=== PATIENT | female | born 1985 | race Caucasian/White ===

== ENCOUNTER 2018-07-01 20:32 | Emergency (ER) | payer OTHER ==
[~2018-07-01] VITALS: Ht 167.6 cm; Wt 81.1 kg
[~2018-07-01 20:32] MED LIST: BUPR1SUB SL; VLM5CL PO
[2018-07-01 20:38] VITALS: TEMP 36.7; Ht 167.6 cm; Wt 81.1 kg
[2018-07-01] MEDS ORDERED: BUPR8SUB19 SL (21:33)
[2018-07-01] MEDS ORDERED: BUSP5TAB59 PO (21:33)
[2018-07-01] MEDS ORDERED: FLUO20CA35 PO (21:33)
[2018-07-01] MEDS ORDERED: hydrOXYzine HCL 25 MG TAB PO STA (21:57)
[2018-07-01 22:07] VITALS: BP 118/66; PULSE 79; O2SAT 98
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
== END 2018-07-01 22:08 | disposition home or self-care (01) ==
LOC: C.EDB 20:33 → C.EDA 22:08
DX: Z02.89 Encounter for other administrative examinations (principal); F41.0 Panic disorder [episodic paroxysmal anxiety]; J45.909 Unspecified asthma, uncomplicated; F17.200 Nicotine dependence, unspecified, uncomplicated; Z62.810 Personal history of physical and sexual abuse in childhood; Z86.59 Personal history of other mental and behavioral disorders; Z79.899 Other long term (current) drug therapy; Z88.6 Allergy status to analgesic agent; Z88.8 Allergy status to other drugs, medicaments and biological substances

== ENCOUNTER 2021-08-28 22:34 | Inpatient (IN) ==
[2021-08-28] MEDS ORDERED: SODIUM CHLORIDE 0.9% 1000ML 1,000 ML IV SCH (23:00)
[2021-08-28 23:06] LABS: Basophils # (auto) 0.02 K/uL (0-0.2); Basophils % (auto) 0.2 %; Eosinophils # (auto) 0.21 K/uL (0-0.5); Eosinophils % (auto) 2.4 %; Hematocrit (blood only) 39.7 % (37-47); Hemoglobin 13.7 g/dL (12.0-16.0); Immature Granulocytes # (auto) 0.02 K/uL (0.00-0.02); Immature Granulocytes % (auto) 0.2 %; Lymphocytes # (auto) 1.93 K/uL (1.2-3.4); Lymphocytes % (auto) 22.1 %; Mean Corpuscular Hemoglobin 31.3 pg (25-34); Mean Corpuscular Hgb Conc 34.5 g/dL (32-36); Mean Corpuscular Volume 90.6 fL (80-100); Mean Platelet Volume 8.7 fL (7.4-10.4); Monocytes # (auto) 0.44 K/uL (0.11-0.59); Neutrophils # (auto) 6.13 K/uL (1.4-6.5); Neutrophils % (auto) 70.1 %; Platelet Count 253 K/uL (130-400); RDW Coefficient of Variation 12.9 % (11.5-14.5); RDW Standard Deviation 42.8 fL (36.4-46.3); Red Blood Count 4.38 M/uL (4.2-5.4); White Blood Count 8.75 K/uL (4.8-10.8)
--- NOTE | 2021-08-28 23:18 | Emergency Department Note ---
Impression & Plan Seizure-like activity, Accidental drug overdose, Headache ED Provider Note NAME: DOM LE AGE: 36 SEX: F : 1985 ARRIVES VIA: Ambulance INFORMANT: Patient, ED PROVIDER(S): Roc Gates MD Patient did present due to concern for witnessed seizure which occurred 2 separate times for several minutes. This was witnessed by the patient's sister. Patient denies any fevers chills chest pains or shortness of breath. Patient does have mild headache but denies any nausea vomiting. Patient does have a known history of drug abuse and is on Suboxone but the patient states that she has not taken anything in appropriate recently. Patient denies any infectious symptoms. Patient is not vaccinated for Covid. Patient denies any supplements stimulants or drugs or alcohol. The patient does smoke cigarettes. The patient has had a prior history of seizure in the distant past. Patient states her LMP was several weeks ago. Patient had no reported trauma. BSG was normal. Patient was awake and alert upon the time of presentation. The patient did receive 2 Ativan by EMS prior to arrival. Patient denies any tongue biting or incontinence. Chief Complaint: Seizure HPI: ROS: See HPI for pertinent positives and negatives. A total of 10 systems were reviewed and otherwise negative. Past medical history: See below Surgical history: See below Social history: See below Physical Exam: GENERAL: NAD, wearing a mask, non-toxic. EYE EXAM: Normal conjunctiva. PERRL, no anisocoria and EOM's grossly intact w/o pain. OROPHARYNX: Moist mucus membranes. Grossly normal dentition. NECK: Supple, no nuchal rigidity, no adenopathy, non-tender. No signs of meningismus. LUNGS: Clear to auscultation. Normal chest wall mechanics. HEART: NSR, no MRG. ABDOMEN: Abdomen soft, non-tender, normo-active bowel sounds, no masses, no rebound or guarding. BACK: No CVA TTP. SKIN: No rashes and no bruising. UPPER EXTREMITIES: Upper extremities are grossly normal. LOWER EXTREMITIES: Grossly normal, no edema. Negative Homans' sign bilaterally. NEURO EXAM: A&O x3, cranial nerves II-XII grossly intact, normal speech, moves all 4 extremities on command w/o issue. Good finger to nose, no drift, no sensory deficits. Differential diagnoses: Epilepsy, infection, hypoglycemia, electrolyte abnormalities, cardiac sources, intracerebral event, trauma, toxicologic, neurologic, syncope, as well as other pathologies. Course: Patient was seen and evaluated the bedside. Full history physical exam was performed. EKG interpreted by me Sinus tachycardia, rate 115, normal intervals, normal axis, mild depressions anteriorly and laterally.Depressions are slightly more prominent from comparison EKG completed December 21, 2020. Imaging Studies: See Below Cardiac monitoring: An order was placed for continuous cardiac monitoring. The monitor shows a rate of 104 with tachycardic and regular rhythm. MDM: Patient was seen due to concern for seizure. Blood work was obtained. After blood work was obtained which was unremarkable the patient had admitted to taking too much gabapentin yesterday. The patient was trialed by mouth and given headache medications. The patient had a subsequent seizure was given 2 of Ativan. The patient was loaded with Keppra. Given that the patient has had 3 seizures I do believe the patient would benefit from inpatient treatment. BSG was normal. I did speak with the on-call hospitalist Dr. De Los Santos and the patient was admitted to the medicine service. Critical Care: I have personally spent 37 minutes of critical care time in direct management of this patient. This includes bedside care, interpretation of diagnostic studies, and testing, discussion with consultants, patient, and family members, and other require inpatient management activities. This 37 minutes is in excess of all separately billable procedures. Past Med/Surg History Medical History (Updated 08/29/21 @ 16:09 by Roc Gates MD) Anxiety Panic attack (09/12/13) Surgical History No pertinent past surgical history Family History Other No pertinent family history Social History Smoking Status: Former smoker Tobacco Type: Cigarettes Hx Alcohol Use: No Preferred Language: Greenlandic marital status: single Current Living Situation: Alone Other Information That Helps Us Care for You: No Feels Safe at Home: Yes Safety Concerns: Feels Safe At This Time Assistive Devices: None Allergies Allergies Allergy/AdvReac Type Severity Reaction Status Date / Time tramadol Allergy Intermediate rash/itchin Verified 08/28/21 23:07 g promethazine AdvReac Intermediate Muscle Verified 08/28/21 23:07 twitching and change in mental status. Home Meds Home Medications Medication Instructions Recorded Confirmed buprenorphine 8 mg-naloxone 2 mg 1 tab SUBLINGUAL DAILY 07/07/21 08/28/21 sublingual tablet lamotrigine 25 mg tablet 75 mg PO QAM 07/07/21 08/28/21 quetiapine 100 mg tablet 150 mg PO HS 07/07/21 08/28/21 sertraline 100 mg tablet 100 mg PO DAILY 07/07/21 08/28/21 Results & Data (ED) Vital Signs Vital Signs - 24 hr 08/28/21 22:36 08/28/21 22:39 08/28/21 22:47 Temperature 37.1 C Temperature Source Oral Pulse Rate 118 H 115 H 120 H Pulse Rate from SpO2 Sensor 114 H Respiratory Rate 17 18 17 Respiratory Effort / Characteristics Non-Labored Respiratory Depth Normal Respiratory Pattern Regular Blood Pressure 105/47 L 105/47 L Blood Pressure Mean 66 66 Blood Pressure Position Lying Pulse Oximetry 96 94 97 Oxygen Delivery Method Room Air Room Air Oxygen Flow Rate Sepsis Recent Fever Within 48 Hours No Sepsis New/Unexplained Change in Mental Status No Sepsis Action Taken by Nursing No Action Required Oxygen Flow Rate - Titration Pulse Oximetry Post Tiitration 08/28/21 23:00 08/28/21 23:02 08/28/21 23:31 Temperature Temperature Source Pulse Rate 122 H Pulse Rate from SpO2 Sensor 122 H 106 H Respiratory Rate 18 21 Respiratory Effort / Characteristics Respiratory Depth Respiratory Pattern Blood Pressure 115/68 117/65 Blood Pressure Mean 83 82 Blood Pressure Position Pulse Oximetry 100 99 Oxygen Delivery Method Room Air Oxygen Flow Rate 99 Sepsis Recent Fever Within 48 Hours Sepsis New/Unexplained Change in Mental Status Sepsis Action Taken by Nursing Oxygen Flow Rate - Titration Pulse Oximetry Post Tiitration 08/29/21 00:00 08/29/21 00:30 08/29/21 01:00 Temperature Temperature Source Pulse Rate 104 H 98 H 110 H Pulse Rate from SpO2 Sensor 105 H 98 H 104 H Respiratory Rate 13 18 22 Respiratory Effort / Characteristics Respiratory Depth Respiratory Pattern Blood Pressure 98/61 L 105/53 L 104/57 L Blood Pressure Mean 73 70 72 Blood Pressure Position Pulse Oximetry 98 95 97 Oxygen Delivery Method Oxygen Flow Rate Sepsis Recent Fever Within 48 Hours Sepsis New/Unexplained Change in Mental Status Sepsis Action Taken by Nursing Oxygen Flow Rate - Titration Pulse Oximetry Post Tiitration 08/29/21 01:30 08/29/21 01:40 08/29/21 02:00 Temperature Temperature Source Pulse Rate 102 H 98 H Pulse Rate from SpO2 Sensor 102 H 98 H Respiratory Rate 19 19 Respiratory Effort / Characteristics Respiratory Depth Respiratory Pattern Blood Pressure 104/60 90/45 L Blood Pressure Mean 74 60 Blood Pressure Position Pulse Oximetry 96 88 L 92 Oxygen Delivery Method Room Air Non-rebreather Room Air Oxygen Flow Rate Sepsis Recent Fever Within 48 Hours Sepsis New/Unexplained Change in Mental Status Sepsis Action Taken by Nursing Oxygen Flow Rate - Titration 10 Pulse Oximetry Post Tiitration 92 08/29/21 02:30 08/29/21 02:33 Temperature Temperature Source Pulse Rate 94 H Pulse Rate from SpO2 Sensor 94 H Respiratory Rate 17 Respiratory Effort / Characteristics Respiratory Depth Respiratory Pattern Blood Pressure 88/40 L Blood Pressure Mean 56 Blood Pressure Position Pulse Oximetry 93 93 Oxygen Delivery Method Nasal Cannula Nasal Cannula Oxygen Flow Rate 2 2 Sepsis Recent Fever Within 48 Hours Sepsis New/Unexplained Change in Mental Status Sepsis Action Taken by Nursing Oxygen Flow Rate - Titration Pulse Oximetry Post Tiitration Home Medications Current Medication List: was personally reviewed by me Laboratory Data Attestation: I reviewed the patient's lab results. Result diagrams: 08/28/21 22:55 08/28/21 22:55 Lab Results 08/28/21 08/28/21 08/28/21 Range/Units 22:55 22:55 22:55 WBC 8.75 (4.8-10.8) K/uL RBC 4.38 (4.2-5.4) M/uL Hgb 13.7 (12.0-16.0) g/dL Hct 39.7 (37-47) % MCV 90.6 (80-100) fL MCH 31.3 (25-34) pg MCHC 34.5 (32-36) g/dL RDW Std Deviation 42.8 (36.4-46.3) fL RDW Coeff of Joe 12.9 (11.5-14.5) % Plt Count 253 (130-400) K/uL MPV 8.7 (7.4-10.4) fL Immature Gran % (Auto) 0.2 % Neut % (Auto) 70.1 % Lymph % (Auto) 22.1 % Louisa % (Auto) 5.0 % Eos % (Auto) 2.4 % Baso % (Auto) 0.2 % Neut # (Auto) 6.13 (1.4-6.5) K/uL Lymph # (Auto) 1.93 (1.2-3.4) K/uL Louisa # (Auto) 0.44 (0.11-0.59) K/uL Eos # (Auto) 0.21 (0-0.5) K/uL Baso # (Auto) 0.02 (0-0.2) K/uL Immature Gran # (Auto) 0.02 (0.00-0.02) K/uL Sodium 135 L (136-145) mmol/L Potassium 3.9 (3.5-5.1) mmol/L Chloride 111 H (98-107) mmol/L Carbon Dioxide 23 (21-32) mmol/L Anion Gap 1.0 L (3-11) BUN 13 (7-18) mg/dl Creatinine 0.99 (0.6-1.2) mg/dl Est Cr Clr Drug Dosing 80.4 ml/min Est GFR ( Amer) 86.2 ml/min Est GFR (Non-Af Amer) 74.3 ml/min BUN/Creatinine Ratio 12.8 (10-20) Glucose 122 H (70-99) mg/dl POC Glucose (70-99) mg/dl Estimat Average Glucose mg/dl Hemoglobin A1c (4.5-5.6) % Calcium 8.7 (8.5-10.1) mg/dl Phosphorus 2.0 L (2.5-4.9) mg/dl Magnesium 2.1 (1.8-2.4) mg/dl Total Bilirubin 0.2 (0.2-1) mg/dl AST 16 (15-37) U/L ALT 19 (12-78) U/L Alkaline Phosphatase 57 (45-117) U/L Troponin I < 0.015 (0-0.045) ng/ml Total Protein 7.4 (6.4-8.2) gm/dl Albumin 3.9 (3.4-5.0) gm/dl Globulin 3.5 (2.5-4.0) gm/dl Albumin/Globulin Ratio 1.1 (0.9-2) HCG, Qual (Negative) Urine Color Urine Appearance (Clear) Urine pH (4.5-7.5) Ur Specific [place] (1.000-1.030) Urine Protein (Negative) Urine Glucose (UA) (Negative) Urine Ketones (Negative) Urine Blood (Negative) Urine Nitrite (Negative) Urine Bilirubin (Negative) Urine Urobilinogen (Negative) Ur Leukocyte Esterase (Negative) Urine WBC (Auto) (0-5) /hpf Urine RBC (Auto) (0-4) /hpf U Hyaline Cast (Auto) (0-5) /lpf U Epithel Cells (Auto) (0-5) /lpf Urine Bacteria (Auto) (Negative) Urine Opiates Screen (Neg) Ur Methadone, Qual (Neg) Urine Barbiturates (Neg) Ur Phencyclidine (PCP) (Neg) U Amphetamin/Meth Scrn (Neg) MDMA (Ecstasy) Screen (Neg) U Benzodiazepines Scrn (Neg) Ur Cocaine Metabolite (Neg) U Marijuana (THC) Screen (Neg) Ethyl Alcohol mg/dL < 3.0 (0-3) mg/dl Lyme Disease IgG Ab (Negative) Lyme Disease IgM Ab (Negative) COVID-19 Eval Order SARS-CoV-2 (PCR) (Negative) 08/28/21 08/28/21 08/28/21 Range/Units 22:55 22:55 22:55 WBC (4.8-10.8) K/uL RBC (4.2-5.4) M/uL Hgb (12.0-16.0) g/dL Hct (37-47) % MCV (80-100) fL MCH (25-34) pg MCHC (32-36) g/dL RDW Std Deviation (36.4-46.3) fL RDW Coeff of Joe (11.5-14.5) % Plt Count (130-400) K/uL MPV (7.4-10.4) fL Immature Gran % (Auto) % Neut % (Auto) % Lymph % (Auto) % Louisa % (Auto) % Eos % (Auto) % Baso % (Auto) % Neut # (Auto) (1.4-6.5) K/uL Lymph # (Auto) (1.2-3.4) K/uL Louisa # (Auto) (0.11-0.59) K/uL Eos # (Auto) (0-0.5) K/uL Baso # (Auto) (0-0.2) K/uL Immature Gran # (Auto) (0.00-0.02) K/uL Sodium (136-145) mmol/L Potassium (3.5-5.1) mmol/L Chloride (98-107) mmol/L Carbon Dioxide (21-32) mmol/L Anion Gap (3-11) BUN (7-18) mg/dl Creatinine (0.6-1.2) mg/dl Est Cr Clr Drug Dosing ml/min Est GFR ( Amer) ml/min Est GFR (Non-Af Amer) ml/min BUN/Creatinine Ratio (10-20) Glucose (70-99) mg/dl POC Glucose (70-99) mg/dl Estimat Average Glucose 105 mg/dl Hemoglobin A1c 5.3 (4.5-5.6) % Calcium (8.5-10.1) mg/dl Phosphorus (2.5-4.9) mg/dl Magnesium (1.8-2.4) mg/dl Total Bilirubin (0.2-1) mg/dl AST (15-37) U/L ALT (12-78) U/L Alkaline Phosphatase (45-117) U/L Troponin I (0-0.045) ng/ml Total Protein (6.4-8.2) gm/dl Albumin (3.4-5.0) gm/dl Globulin (2.5-4.0) gm/dl Albumin/Globulin Ratio (0.9-2) HCG, Qual Negative (Negative) Urine Color Urine Appearance (Clear) Urine pH (4.5-7.5) Ur Specific [place] (1.000-1.030) Urine Protein (Negative) Urine Glucose (UA) (Negative) Urine Ketones (Negative) Urine Blood (Negative) Urine Nitrite (Negative) Urine Bilirubin (Negative) Urine Urobilinogen (Negative) Ur Leukocyte Esterase (Negative) Urine WBC (Auto) (0-5) /hpf Urine RBC (Auto) (0-4) /hpf U Hyaline Cast (Auto) (0-5) /lpf U Epithel Cells (Auto) (0-5) /lpf Urine Bacteria (Auto) (Negative) Urine Opiates Screen (Neg) Ur Methadone, Qual (Neg) Urine Barbiturates (Neg) Ur Phencyclidine (PCP) (Neg) U Amphetamin/Meth Scrn (Neg) MDMA (Ecstasy) Screen (Neg) U Benzodiazepines Scrn (Neg) Ur Cocaine Metabolite (Neg) U Marijuana (THC) Screen (Neg) Ethyl Alcohol mg/dL (0-3) mg/dl Lyme Disease IgG Ab Negative (Negative) Lyme Disease IgM Ab Negative (Negative) COVID-19 Eval Order SARS-CoV-2 (PCR) (Negative) 08/28/21 08/28/21 08/29/21 Range/Units 23:32 23:32 01:54 WBC (4.8-10.8) K/uL RBC (4.2-5.4) M/uL Hgb (12.0-16.0) g/dL Hct (37-47) % MCV (80-100) fL MCH (25-34) pg MCHC (32-36) g/dL RDW Std Deviation (36.4-46.3) fL RDW Coeff of Joe (11.5-14.5) % Plt Count (130-400) K/uL MPV (7.4-10.4) fL Immature Gran % (Auto) % Neut % (Auto) % Lymph % (Auto) % Louisa % (Auto) % Eos % (Auto) % Baso % (Auto) % Neut # (Auto) (1.4-6.5) K/uL Lymph # (Auto) (1.2-3.4) K/uL Louisa # (Auto) (0.11-0.59) K/uL Eos # (Auto) (0-0.5) K/uL Baso # (Auto) (0-0.2) K/uL Immature Gran # (Auto) (0.00-0.02) K/uL Sodium (136-145) mmol/L Potassium (3.5-5.1) mmol/L Chloride (98-107) mmol/L Carbon Dioxide (21-32) mmol/L Anion Gap (3-11) BUN (7-18) mg/dl Creatinine (0.6-1.2) mg/dl Est Cr Clr Drug Dosing ml/min Est GFR ( Amer) ml/min Est GFR (Non-Af Amer) ml/min BUN/Creatinine Ratio (10-20) Glucose (70-99) mg/dl POC Glucose (70-99) mg/dl Estimat Average Glucose mg/dl Hemoglobin A1c (4.5-5.6) % Calcium (8.5-10.1) mg/dl Phosphorus (2.5-4.9) mg/dl Magnesium (1.8-2.4) mg/dl Total Bilirubin (0.2-1) mg/dl AST (15-37) U/L ALT (12-78) U/L Alkaline Phosphatase (45-117) U/L Troponin I (0-0.045) ng/ml Total Protein (6.4-8.2) gm/dl Albumin (3.4-5.0) gm/dl Globulin (2.5-4.0) gm/dl Albumin/Globulin Ratio (0.9-2) HCG, Qual (Negative) Urine Color Yellow Urine Appearance Clear (Clear) Urine pH 5.0 (4.5-7.5) Ur Specific [place] 1.024 (1.000-1.030) Urine Protein Negative (Negative) Urine Glucose (UA) Negative (Negative) Urine Ketones Trace H (Negative) Urine Blood Trace H (Negative) Urine Nitrite Negative (Negative) Urine Bilirubin Negative (Negative) Urine Urobilinogen Negative (Negative) Ur Leukocyte Esterase Negative (Negative) Urine WBC (Auto) 1-5 (0-5) /hpf Urine RBC (Auto) 0-4 (0-4) /hpf U Hyaline Cast (Auto) 1-5 (0-5) /lpf U Epithel Cells (Auto) >30 H (0-5) /lpf Urine Bacteria (Auto) 1+ H (Negative) Urine Opiates Screen Neg (Neg) Ur Methadone, Qual Neg (Neg) Urine Barbiturates Neg (Neg) Ur Phencyclidine (PCP) Neg (Neg) U Amphetamin/Meth Scrn Neg (Neg) MDMA (Ecstasy) Screen Neg (Neg) U Benzodiazepines Scrn Neg (Neg) Ur Cocaine Metabolite Neg (Neg) U Marijuana (THC) Screen Neg (Neg) Ethyl Alcohol mg/dL (0-3) mg/dl Lyme Disease IgG Ab (Negative) Lyme Disease IgM Ab (Negative) COVID-19 Eval Order Covid19 at [facility] SARS-CoV-2 (PCR) (Negative) 08/29/21 08/29/21 Range/Units 01:54 01:58 WBC (4.8-10.8) K/uL RBC (4.2-5.4) M/uL Hgb (12.0-16.0) g/dL Hct (37-47) % MCV (80-100) fL MCH (25-34) pg MCHC (32-36) g/dL RDW Std Deviation (36.4-46.3) fL RDW Coeff of Jeo (11.5-14.5) % Plt Count (130-400) K/uL MPV (7.4-10.4) fL Immature Gran % (Auto) % Neut % (Auto) % Lymph % (Auto) % Louisa % (Auto) % Eos % (Auto) % Baso % (Auto) % Neut # (Auto) (1.4-6.5) K/uL Lymph # (Auto) (1.2-3.4) K/uL Louisa # (Auto) (0.11-0.59) K/uL Eos # (Auto) (0-0.5) K/uL Baso # (Auto) (0-0.2) K/uL Immature Gran # (Auto) (0.00-0.02) K/uL Sodium (136-145) mmol/L Potassium (3.5-5.1) mmol/L Chloride (98-107) mmol/L Carbon Dioxide (21-32) mmol/L Anion Gap (3-11) BUN (7-18) mg/dl Creatinine (0.6-1.2) mg/dl Est Cr Clr Drug Dosing ml/min Est GFR ( Amer) ml/min Est GFR (Non-Af Amer) ml/min BUN/Creatinine Ratio (10-20) Glucose (70-99) mg/dl POC Glucose 116 H (70-99) mg/dl Estimat Average Glucose mg/dl Hemoglobin A1c (4.5-5.6) % Calcium (8.5-10.1) mg/dl Phosphorus (2.5-4.9) mg/dl Magnesium (1.8-2.4) mg/dl Total Bilirubin (0.2-1) mg/dl AST (15-37) U/L ALT (12-78) U/L Alkaline Phosphatase (45-117) U/L Troponin I (0-0.045) ng/ml Total Protein (6.4-8.2) gm/dl Albumin (3.4-5.0) gm/dl Globulin (2.5-4.0) gm/dl Albumin/Globulin Ratio (0.9-2) HCG, Qual (Negative) Urine Color Urine Appearance (Clear) Urine pH (4.5-7.5) Ur Specific [place] (1.000-1.030) Urine Protein (Negative) Urine Glucose (UA) (Negative) Urine Ketones (Negative) Urine Blood (Negative) Urine Nitrite (Negative) Urine Bilirubin (Negative) Urine Urobilinogen (Negative) Ur Leukocyte Esterase (Negative) Urine WBC (Auto) (0-5) /hpf Urine RBC (Auto) (0-4) /hpf U Hyaline Cast (Auto) (0-5) /lpf U Epithel Cells (Auto) (0-5) /lpf Urine Bacteria (Auto) (Negative) Urine Opiates Screen (Neg) Ur Methadone, Qual (Neg) Urine Barbiturates (Neg) Ur Phencyclidine (PCP) (Neg) U Amphetamin/Meth Scrn (Neg) MDMA (Ecstasy) Screen (Neg) U Benzodiazepines Scrn (Neg) Ur Cocaine Metabolite (Neg) U Marijuana (THC) Screen (Neg) Ethyl Alcohol mg/dL (0-3) mg/dl Lyme Disease IgG Ab (Negative) Lyme Disease IgM Ab (Negative) COVID-19 Eval Order SARS-CoV-2 (PCR) NEGATIVE (Negative) Administered Medications Discontinued Medications Acetaminophen (Acetaminophen 500 Mg Tab) 1,000 mg PO NOW STA Stop: 08/29/21 01:32 Last Admin: 08/29/21 03:57 Dose: Not Given Documented by: [id number] Gadobutrol (Gadobutrol 65ml Vial) 8.5 ml IV ONCE ONE Stop: 08/29/21 13:17 Last Admin: 08/29/21 13:17 Dose: 8.5 ml Documented by: [id number] Sodium Chloride (Nss 1000ml) 1,000 mls @ 999 mls/hr IV .Q1H1M DIPAK Stop: 08/29/21 00:00 Last Infusion: 08/29/21 00:05 Dose: 0 mls/hr Documented by: [id number] Admin: 08/28/21 22:57 Dose: 999 mls/hr Documented by: [id number] Sodium Chloride (Nss 1000ml) 1,000 mls @ 999 mls/hr IV .Q1H1M ONE Stop: 08/29/21 02:16 Last Infusion: 08/29/21 03:36 Dose: 0 mls/hr Documented by: [id number] Admin: 08/29/21 01:47 Dose: 999 mls/hr Documented by: [id number] Lorazepam (Ativan) 2 mg in 4 mls @ 4 mls/min IV NOW STA Stop: 08/29/21 01:42 Last Admin: 08/29/21 01:50 Dose: 4 mls/min Documented by: [id number] Levetiracetam 2,000 mg/ Sodium (Chloride) 270 mls @ 999 mls/hr IV NOW STA Stop: 08/29/21 01:57 Last Infusion: 08/29/21 02:21 Dose: 0 mls/hr Documented by: [id number] Admin: 08/29/21 02:02 Dose: 999 mls/hr Documented by: [id number] Levetiracetam 2,000 mg/ Sodium (Chloride) 270 mls @ 999 mls/hr IV NOW STA Stop: 08/29/21 02:07 Last Admin: 08/29/21 02:16 Dose: Not Given Documented by: [id number] Lactated Ringer's (Lr) 1,000 mls @ 100 mls/hr IV .Q10H ONE Stop: 08/29/21 12:47 Last Infusion: 08/29/21 11:28 Dose: 0 mls/hr Documented by: [id number] Admin: 08/29/21 03:32 Dose: 100 mls/hr Documented by: [id number] Sodium Chloride (Nss 1000ml) 1,000 mls @ 999 mls/hr IV .Q1H1M ONE Stop: 08/29/21 04:53 Last Infusion: 08/29/21 05:02 Dose: 0 mls/hr Documented by: [id number] Admin: 08/29/21 04:01 Dose: 999 mls/hr Documented by: [id number] Ketorolac Tromethamine (Ketorolac Tromethamine 15 Mg/Ml Vial) 10 mg IV NOW ONE Stop: 08/29/21 01:32 Last Admin: 08/29/21 01:35 Dose: 10 mg Documented by: [id number] Lorazepam (Lorazepam 2 Mg/4 Ml Vial) Confirm Administered Dose 2 mg .ROUTE .STK- MED ONE Stop: 08/29/21 01:43 Last Admin: 08/29/21 01:50 Dose: Not Given Documented by: [id number] Ondansetron HCl (Ondansetron Inj 2 Mg/Ml 2 Ml Vial) 4 mg IV NOW STA Stop: 08/29/21 00:00 Last Admin: 08/29/21 00:02 Dose: 4 mg Documented by: [id number] Ondansetron HCl (Ondansetron Inj 2 Mg/Ml 2 Ml Vial) Confirm Administered Dose 4 mg .ROUTE .STK-MED ONE Stop: 08/29/21 00:01 Last Admin: 08/29/21 00:05 Dose: Not Given Documented by: [id number] Potassium Phosphate (Pot Phosphate Monobasic W/ Sod Tab) 2 tab PO NOW STA Stop: 08/28/21 23:45 Last Admin: 08/29/21 06:02 Dose: 2 tab Documented by: [id number] Imaging Data Radiologist's Impression: Head CT 08/28/21 22:47 CT head/brain wo con Clinical Indication: Seizure. Technique: Contiguous axial CT images of the head were acquired from the base of the skull to the vertex without intravenous contrast administration. Images were viewed in brain, subdural and bone windows. Automated dose lowering techniques and/or adjustment according to patient size were utilized for this exam. Comparison: None available at the time of this dictation. Findings: The ventricles, basal cisterns, and cerebral sulci are normal. There is no acute intracranial hemorrhage or evidence of acute territorial infarction. Neither mass effect, shift of the midline structures, nor abnormal extra-axial fluid co llections are shown. Imaged portions of the paranasal sinuses and mastoid air cells are clear. The orbits appear normal. There are no acute fractures of the calvaria or scalp swelling. Impression: No acute intracranial hemorrhage, evidence of acute territorial infarction, or other acute intracranial disease process. ACT 112: Negative or not required by law. Electronically signed by: Mehrdad Guerra M.D. 08/29/2021 7:51 AM Chest X-Ray 08/29/21 02:42 XR chest 1V portable CLINICAL HISTORY: low o2 COMPARISON STUDY: December 24, 2020 FINDINGS: No pneumothorax. No pleural effusion. Interval prominence of bilateral reticular nodular opacities, most prominent within left lung. Lung volumes are decreased with crowded lung markings. Cardiomediastinal silhouette is within normal limits in size. No significant pulmonary vascular congestion.. Osseous structures: Redemonstration of healed fracture deformity of the right rib cage. IMPRESSION: 1. Diffuse reticular nodular opacities are new since prior study, might represent infectious/inflammatory process versus other etiology. Suboptimal study due to low inspiratory effort. Follow-up evaluation with PA and lateral chest radiograph is suggested. ACT 112: Negative or not required by law. The above report was generated using voice recognition software. It may contain grammatical, syntax or spelling errors. Electronically signed by: Alicia Hart DO 08/29/2021 8:25 AM Discharge Plan Visit Data Chief Complaint: Seizure ED Provider: Roc Gates Discharge Problem: Seizure-like activity, Accidental drug overdose, Headache Patient Disposition: Admitted As Inpatient Condition: Good Discharge Instructions Interventions: ED Discharge Assessment Last Done: 08/29/21 04:26
[2021-08-28 23:28] LABS: Pregnancy Test, Serum Negative (Negative)
[2021-08-28 23:40] LABS: Alanine Aminotransferase 19 U/L (12-78); Albumin Level 3.9 gm/dl (3.4-5.0); Aspartate Aminotransferase 16 U/L (15-37); BUN Creatinine Ratio 12.8 (10-20); Blood Urea Nitrogen 13 mg/dl (7-18); Calcium 8.7 mg/dl (8.5-10.1); Carbon Dioxide 23 mmol/L (21-32); Chloride 111 mmol/L (98-107); Creatinine Clr Calc Pharmacy 80.4 ml/min; Est GFR (African American) 86.2 ml/min; Est GFR (Non-African American) 74.3 ml/min; Glucose 122 mg/dl (70-99); Magnesium 2.1 mg/dl (1.8-2.4); Potassium 3.9 mmol/L (3.5-5.1); Sodium 135 mmol/L (136-145)
[2021-08-28 23:43] LABS: Albumin Globulin Ratio 1.1 (0.9-2); Alkaline Phosphatase 57 U/L (45-117); Bilirubin,Total 0.2 mg/dl (0.2-1); Globulin 3.5 gm/dl (2.5-4.0); Total Protein 7.4 gm/dl (6.4-8.2)
[2021-08-28 23:51] LABS: Appearance Urine Clear (Clear); Bacteria Urine Automated 1+ (Negative); Bilirubin Urine Negative (Negative); Blood Urine Trace (Negative); Color Urine Yellow; Epithelial Cell Urine Auto >30 /lpf (0-5); Glucose Urine UA Negative (Negative); Ketones Urine Trace (Negative); Leukocyte Esterase Urine Negative (Negative); Nitrite Urine Negative (Negative); Protein Urine Negative (Negative); RBC Urine Automated 0-4 /hpf (0-4); Specific Gravity Urine 1.024 (1.000-1.030); Urobilinogen Urine Negative (Negative)
[2021-08-28] MEDS ORDERED: ONDANSETRON INJ 2 MG/ML 2 ML VIAL IV STA (23:59)
[2021-08-29] MEDS ORDERED: ONDANSETRON INJ 2 MG/ML 2 ML VIAL ONE
[2021-08-29 00:19] LABS: Amphetamines+Metham, Urine Neg (Neg); Barbiturates, Urine Neg (Neg); Benzodiazepine, Urine Neg (Neg); Cocaine, Urine Neg (Neg); MDMA (Ecstacy), Urine Neg (Neg); Methadone, Urine Neg (Neg); Opiate, Urine Neg (Neg); Phencyclidine, Urine Neg (Neg)
[2021-08-29 01:14] LABS: Troponin I < 0.015 ng/ml (0-0.045)
[2021-08-29] MEDS ORDERED: SODIUM CHLORIDE 0.9% 1000ML 1,000 ML IV ONE ×2 (01:16→03:53)
[2021-08-29] MEDS ORDERED: KETOROLAC TROMETHAMINE 15 MG/ML VIAL IV ONE (01:31)
[2021-08-29] MEDS ORDERED: ACETAMINOPHEN 500 MG TAB PO STA (01:31)
[2021-08-29] MEDS ORDERED: LORazepam 2 MG/4 ML VIAL IV STA (01:41)
[2021-08-29] MEDS ORDERED: LORazepam 2 MG/4 ML VIAL ONE (01:42)
[2021-08-29] MEDS ORDERED: LEVETIRACETAM IV STA (01:45)
[2021-08-29] MEDS ORDERED: SODIUM CHLORIDE 0.9% IV STA (01:45)
--- NOTE | 2021-08-29 02:40 | History & Physical Report ---
Date of Service August 29, 2021 Assessment & Plan (1) Seizures: Plan: Recurrent episodes Possibly secondary to substance abuse Rule out brain tumor, epilepsy mood disorder/ PTSD as per records, patient [id number] suspects problems that patient is not disclosing to her family Hyperglycemia rule out DM ongoing tobacco abuse Medical telemetry Ativan as needed seizure precautions Keppra for now for seizure prophylaxis EEG, MRI brain for seizure work-up Neurology consult Re: Recurrent seizures Appropriate hold neuropsychotropic meds until patient more awake May need psychiatry consultation inpatient to evaluate patient mood in light of possible substance abuse Check hemoglobin A1c Nicotine patch as needed DVT prophylaxis. SCDs for now until brain tumor ruled out by MRI; Lovenox 40 mg SQ daily if no brain tumor on imaging Full code Patient [id number] requesting updates from providers. Ms. Anayeli Muller, contact #[phone]. Text document was generated using [employer] recognition software. It may contain grammatical or spelling errors. Kindly contact undersigned for clarification of any documentation item in question. History of Present Illness Chief Complaint: Seizures Primary Care Provider: Abraham Ibrahim MD History obtained from patient, family, and records. Limited history from patient secondary to lethargy. Medical history significant for mood disorder, PTSD, drug addiction as per records, chronic pain on Subutex, ongoing tobacco abuse. Last confinement August 2013 for asthma exacerbation. Two witnessed seizure-like activity at home last night by patient's family. Hands shaking/teeth clenching episode lasting 5 minutes each as per patient [id number] with confusion. No incontinence, no tongue biting. Patient complaining of achy headache symptoms. Patient claims she has had seizures in the past. [id number] suspects substance abuse as cause of seizures. At the ER patient noted to have another seizure. Ativan and Keppra administered at the ER Patient currently lethargic. SBP 80s. Medical History as above Surgical History : None Family History : Brain aneurysm Personal/Social history : Half pack daily, no EtOH intake, lives with father Allergies Allergy/AdvReac Type Severity Reaction Status Date / Time tramadol Allergy Intermediate rash/itchin Verified 08/28/21 23:07 g promethazine AdvReac Intermediate Muscle Verified 08/28/21 23:07 twitching and change in mental status. Home Medications Medication Instructions Recorded Confirmed Type buprenorphine 8 mg-naloxone 2 mg 1 tab SUBLINGUAL DAILY 07/07/21 08/28/21 History sublingual tablet lamotrigine 25 mg tablet 75 mg PO QAM 07/07/21 08/28/21 History quetiapine 100 mg tablet 150 mg PO HS 07/07/21 08/28/21 History sertraline 100 mg tablet 100 mg PO DAILY 07/07/21 08/28/21 History Past Med/Surg History Medical History (Updated 08/29/21 @ 04:27 by Philip Holliday MD) Anxiety Panic attack (09/12/13) Surgical History No pertinent past surgical history Family History Other No pertinent family history Social History Smoking Status: Former smoker Tobacco Type: Cigarettes Hx Alcohol Use: No Preferred Language: Cypriot marital status: single Current Living Situation: Alone Other Information That Helps Us Care for You: No Feels Safe at Home: Yes Safety Concerns: Feels Safe At This Time Assistive Devices: None Review of Systems Review of Systems: Could not be reliably obtained Physical Exam Physical Exam: GENERAL: Lethargic, no respiratory distress SKIN: Normal color, warm HEENT: [employer] palpebral conjunctivae, no ptosis, dry buccal mucosa, nasal cannula in place NECK : Supple, no tenderness CHEST : CTA, no tenderness HEART : RRR, no obvious murmurs ABDOMEN: Some distention, nontender EXTREMITIES : No LE swelling/tenderness, no other conspicuous deformities noted NEUROLOGIC : Lethargic, dilated pupils, no facial asymmetry, gait and stance not assessed Results & Data Results & Data ([facility]) Vital Signs (Past 12 Hours) Vital Signs Temp Pulse Resp BP Pulse Ox 08/29/21 02:33 93 08/29/21 02:00 98 H 19 90/45 L 92 08/29/21 01:40 88 L 08/29/21 01:30 102 H 19 104/60 96 08/29/21 01:00 110 H 22 104/57 L 97 08/29/21 00:30 98 H 18 105/53 L 95 08/29/21 00:00 104 H 13 98/61 L 98 08/28/21 23:31 21 117/65 99 08/28/21 23:00 122 H 18 115/68 100 08/28/21 22:47 120 H 17 97 08/28/21 22:39 115 H 18 105/47 L 94 08/28/21 22:36 37.1 C 118 H 17 105/47 L 96 Laboratory Results Laboratory Results WBC 8.75 K/uL (4.8-10.8) 08/28/21 22:55 RBC 4.38 M/uL (4.2-5.4) 08/28/21 22:55 Hgb 13.7 g/dL (12.0-16.0) 08/28/21 22:55 Hct 39.7 % (37-47) 08/28/21 22:55 MCV 90.6 fL (80-100) 08/28/21 22:55 MCH 31.3 pg (25-34) 08/28/21 22:55 MCHC 34.5 g/dL (32-36) 08/28/21 22:55 RDW Std Deviation 42.8 fL (36.4-46.3) 08/28/21 22:55 RDW Coeff of Joe 12.9 % (11.5-14.5) 08/28/21 22:55 Plt Count 253 K/uL (130-400) 08/28/21 22:55 MPV 8.7 fL (7.4-10.4) 08/28/21 22:55 Immature Gran % (Auto) 0.2 % 08/28/21 22:55 Neut % (Auto) 70.1 % 08/28/21 22:55 Lymph % (Auto) 22.1 % 08/28/21 22:55 [place] % (Auto) 5.0 % 08/28/21 22:55 Eos % (Auto) 2.4 % 08/28/21 22:55 Baso % (Auto) 0.2 % 08/28/21 22:55 Neut # (Auto) 6.13 K/uL (1.4-6.5) 08/28/21 22:55 Lymph # (Auto) 1.93 K/uL (1.2-3.4) 08/28/21 22:55 [place] # (Auto) 0.44 K/uL (0.11-0.59) 08/28/21 22:55 Eos # (Auto) 0.21 K/uL (0-0.5) 08/28/21 22:55 Baso # (Auto) 0.02 K/uL (0-0.2) 08/28/21 22:55 Immature Gran # (Auto) 0.02 K/uL (0.00-0.02) 08/28/21 22:55 Sodium 135 mmol/L (136-145) L 08/28/21 22:55 Potassium 3.9 mmol/L (3.5-5.1) 08/28/21 22:55 Chloride 111 mmol/L (98-107) H 08/28/21 22:55 Carbon Dioxide 23 mmol/L (21-32) 08/28/21 22:55 Anion Gap 1.0 (3-11) L 08/28/21 22:55 BUN 13 mg/dl (7-18) 08/28/21 22:55 Creatinine 0.99 mg/dl (0.6-1.2) 08/28/21 22:55 Est Cr Clr Drug Dosing 80.4 ml/min 08/28/21 22:55 Est GFR ( Amer) 86.2 ml/min 08/28/21 22:55 Est GFR (Non-Af Amer) 74.3 ml/min 08/28/21 22:55 BUN/Creatinine Ratio 12.8 (10-20) 08/28/21 22:55 Glucose 122 mg/dl (70-99) H 08/28/21 22:55 POC Glucose 116 mg/dl (70-99) H 08/29/21 01:58 Calcium 8.7 mg/dl (8.5-10.1) 08/28/21 22:55 Phosphorus 2.0 mg/dl (2.5-4.9) L 08/28/21 22:55 Magnesium 2.1 mg/dl (1.8-2.4) 08/28/21 22:55 Total Bilirubin 0.2 mg/dl (0.2-1) 08/28/21 22:55 AST 16 U/L (15-37) 08/28/21 22:55 ALT 19 U/L (12-78) 08/28/21 22:55 Alkaline Phosphatase 57 U/L (45-117) 08/28/21 22:55 Troponin I < 0.015 ng/ml (0-0.045) 08/28/21 22:55 Total Protein 7.4 gm/dl (6.4-8.2) 08/28/21 22:55 Albumin 3.9 gm/dl (3.4-5.0) 08/28/21 22:55 Globulin 3.5 gm/dl (2.5-4.0) 08/28/21 22:55 Albumin/Globulin Ratio 1.1 (0.9-2) 08/28/21 22:55 HCG, Qual Negative (Negative) 08/28/21 22:55 Urine Color Yellow 08/28/21 23:32 Urine Appearance Clear (Clear) 08/28/21 23:32 Urine pH 5.0 (4.5-7.5) 08/28/21 23:32 Ur Specific [place] 1.024 (1.000-1.030) 08/28/21 23:32 Urine Protein Negative (Negative) 08/28/21 23:32 Urine Glucose (UA) Negative (Negative) 08/28/21 23:32 Urine Ketones Trace (Negative) H 08/28/21 23:32 Urine Blood Trace (Negative) H 08/28/21 23:32 Urine Nitrite Negative (Negative) 08/28/21 23:32 Urine Bilirubin Negative (Negative) 08/28/21 23:32 Urine Urobilinogen Negative (Negative) 08/28/21 23:32 Ur Leukocyte Esterase Negative (Negative) 08/28/21 23:32 Urine WBC (Auto) 1-5 /hpf (0-5) 08/28/21 23:32 Urine RBC (Auto) 0-4 /hpf (0-4) 08/28/21 23:32 U Hyaline Cast (Auto) 1-5 /lpf (0-5) 08/28/21 23:32 U Epithel Cells (Auto) >30 /lpf (0-5) H 08/28/21 23:32 Urine Bacteria (Auto) 1+ (Negative) H 08/28/21 23:32 Urine Opiates Screen Neg (Neg) 08/28/21 23:32 Ur Methadone, Qual Neg (Neg) 08/28/21 23:32 Urine Barbiturates Neg (Neg) 08/28/21 23:32 Ur Phencyclidine (PCP) Neg (Neg) 08/28/21 23:32 U Amphetamin/Meth Scrn Neg (Neg) 08/28/21 23:32 MDMA (Ecstasy) Screen Neg (Neg) 08/28/21 23:32 U Benzodiazepines Scrn Neg (Neg) 08/28/21 23:32 Ur Cocaine Metabolite Neg (Neg) 08/28/21 23:32 U Marijuana (THC) Screen Neg (Neg) 08/28/21 23:32 Ethyl Alcohol mg/dL < 3.0 mg/dl (0-3) 08/28/21 22:55 COVID-19 Eval Order Covid19 at [facility] 08/29/21 01:[address] head initial read: No acute or focal intracranial abnormality. Chest x-ray as per my interpretation rotated, elevated right hemidiaphragm, atelectasis EKG as per my interpretation : Rate 115, sinus tachycardia, normal axis, ST depression anterolateral leads
[2021-08-29] MEDS ORDERED: LACTATED RINGER'S 1,000 ML IV ONE (02:48)
[2021-08-29] MEDS ORDERED: LORazepam 1 MG/2 ML VIAL IV PRN (02:48)
[2021-08-29 02:59] LABS: Lyme Ab IgG w/WB Rflx Negative (Negative); Lyme Ab IgM w/WB Rflx Negative (Negative)
[2021-08-29] MEDS ORDERED: ONDANSETRON INJ 2 MG/ML 2 ML VIAL IV PRN (05:03)
[2021-08-29] MEDS ORDERED: ACETAMINOPHEN 325 MG TAB PO PRN ×2 (05:03)
[2021-08-29] MEDS ORDERED: KETOROLAC TROMETHAMINE 15 MG/ML VIAL IV PRN (05:03)
[2021-08-29] MEDS ORDERED: IBUPROFEN 200 MG TAB PO PRN (05:03)
[2021-08-29] MEDS: POT PHOSPHATE MONOBASIC W/ SOD TAB PO STA ×2 (06:00→06:02)
[2021-08-29 07:22] LABS: Estimated Average Glucose 105 mg/dl; Hemoglobin A1C 5.3 % (4.5-5.6)
--- NOTE | 2021-08-29 07:53 | CT Scan Report ---
CT head/brain wo con Clinical Indication: Seizure. Technique: Contiguous axial CT images of the head were acquired from the base of the skull to the huan mannie without intravenous contrast administration. Images were viewed in brain, subdural and [facility]. Automated dose lowering techniques and/or adjustment according to patient size were utilized for this exam. Comparison: None available at the time of this dictation. Findings: The ventricles, basal cisterns, and cerebral sulci are normal. There is no acute intracranial hemorrh age or evidence of acute territorial infarction. Neither mass effect, shift of the midline structures , nor abnormal extra-axial fluid collections are shown. Imaged portions of the paranasal sinuses and mastoid air cells are clear. The orbits appear normal. There are no acute fractures of the calvaria or scalp swelling. Impression: No acute intracranial hemorrhage, evidence of acute territorial infarction, or other acute intracrani al disease process. ACT 112: Negative or not required by law. Electronically signed by: Mehrdad Guerra M.D. 08/29/2021 7:51 AM
--- NOTE | 2021-08-29 08:21 | Neurology Consultation ---
Date of Consultation August 29, 2021 Assessment & Plan (1) Seizures: 1. EEG- r/o seizure focus- read as normal 2. MRI brain with and without - no lesions, strokes, seizure focus identified 3. no driving for 6 months from last seizure date, no heights, no bathing or swimming alone 4. would repeat CXR AP/Lateral 5. gabapentin should not be given to this patient 6. currently on Keppra 500 mg q 12 hours switch to oral 500 mg q 12 hours will decide as outpatient to d/c or continue 7. discharge when medically stable follow up as outpatient in 4-6 weeks with Fabiola Taylor PAC (2) Accidental drug overdose: Supervising Physician Co-Signing Physician Notes Patient was seen and examined this afternoon and discussed with Fabiola Taylor PA-C. Patient is a 36-year-old woman with history of polysubstance a buse admitted with a witnessed general tonic-clonic seizure. She has no prior history of seizures. No family history of epilepsy. She had no incontinence or tongue biting. She is currently back to baseline. She denies any heavy alcohol use. Denies any recent illicit drug use. Denies any new medications or recent head trauma. She does not drive as she does not have her emt driver's license due to past DUI. No focal neurological deficits noted on exam. No tremor. Suspected possible symptomatic seizure in the setting of polypharmacy versus substance use. Routine EEG showed excessive beta activity likely due to recent benzodiazepine administration. No epileptiform discharges. MRI of the brain showed no acute findings. CK level was normal. I would recommend continuing current dose of Keppra 500 mg twice daily. This is not a medication that will she will need to continue indefinitely. If she is seizure-free in 6 months I believe will be appropriate to wean off of this medication. Otherwise I did discuss in [place] the state law she is not allowed to drive for 6 months after having a witnessed seizure. No additional neurological work-up necessary. Patient can follow-up with neurology on an outpatient basis. Please call me with any questions or concerns. History of Present Illness Reason for Consultation: recurrent seizures Requesting Physician: Cuate Jin MD Attending Physician: Cuate Jin MD History of Present Illness Estefany Etienne is a 36 mariam old female who presented to [facility] 08/28/2021 with a witnessed seizure-like activity witness at home by her parents. She had hand shaking/teeth clenching episode lasting 5 minutes by report of her [id number] then confusion. there was no biting tongue or incontinence. she was complaining of achy headache symptoms. She has had seizures in the past and her [id number] suspects substance abuse as cause of seizures. In the ED she had another seizure and was given ativan and Keppra. She does not remember the events that brought her into the hospital. She was given gabapentin and liked the way it made her feel so she took more than what was prescribed. 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 denies CP, SOB, abdominal pain, one sided weakness, numbness tingling, N, V, vision changes, biting tongue, loss of bowel or bladder. +sleepy Allergies Allergy/AdvReac Type Severity Reaction Status Date / Time tramadol Allergy Intermediate rash/itchin Verified 08/28/21 23:07 g promethazine AdvReac Intermediate Muscle Verified 08/28/21 23:07 twitching and change in mental status. Home Medications Medication Instructions Recorded Confirmed Type buprenorphine 8 mg-naloxone 2 mg 1 tab SUBLINGUAL DAILY 07/07/21 08/28/21 History sublingual tablet lamotrigine 25 mg tablet 75 mg PO QAM 07/07/21 08/28/21 History quetiapine 100 mg tablet 150 mg PO HS 07/07/21 08/28/21 History sertraline 100 mg tablet 100 mg PO DAILY 07/07/21 08/28/21 History Patient History Medical History (Updated 08/29/21 @ 16:09 by Roc Gates MD) Anxiety Panic attack (09/12/13) Surgical History No pertinent past surgical history Family History Other No pertinent family history Social History Smoking Status: Former smoker Tobacco Type: Cigarettes Hx Alcohol Use: No Preferred Language: Tajik marital status: single Current Living Situation: Alone Other Information That Helps Us Care for You: No Feels Safe at Home: Yes Safety Concerns: Feels Safe At This Time Assistive Devices: None Review of Systems Review of Systems: All systems reviewed & are unremarkable except as noted in HPI & below Physical Exam Physical Exam: Physical Exam: Constitutional: appearance over nourished, healthy and normal Ears, Nose, Mouth and Throat: mucous membranes moist, no injection and skin normal, eyes normal Cardiovascular: normal S-1 and S-2 and regular rate and rhythm Respiratory: course breath sounds Musculoskeletal: no peripheral edema and good distal pulses Skin: no stigmata of neurocutaneous disease noted and normal and intact Eyes: extraocular muscles intact (EOMI) and pupils equal, round and reactive to light (PERRL) NEUROLOGIC EXAMINATION: Mental status: Alert and interactive Oriented to full date and location Oriented to person Speech fluent with no evidence of aphasia Cranial Nerves smile eye brow raise symmetric Reflexes: Deep tendon reflexes were symmetrical and graded 2/5. Sensory: to light and cool touch intact Coordination: finger to nose intact Gait/Stance: Posture lying in bed Motor: Negative for pronator drift of out stretched arms with eyes closed. Strength: hand rfid analyst biceps triceps 5/5 bilaterally, hip flex plantar flex ext 5/5 Results & Data ([facility]) Vital Signs (Past 12 Hours) Vital Signs Temp Pulse Pulse Resp BP BP Pulse Ox 08/29/21 07:43 83 08/29/21 07:17 37.1 C 91 H 18 114/72 91 08/29/21 04:57 82 08/29/21 04:38 36.7 C 94 H 16 100/60 97 08/29/21 04:11 93 H 80/42 L 97 08/29/21 04:01 80 16 80/46 L 92 08/29/21 03:50 85 18 78/38 L 93 08/29/21 03:31 93 H 17 81/44 L 98 08/29/21 03:00 93 H 18 89/41 L 92 08/29/21 02:33 93 08/29/21 02:30 94 H 17 88/40 L 93 08/29/21 02:00 98 H 19 90/45 L 92 08/29/21 01:40 88 L 08/29/21 01:30 102 H 19 104/60 96 08/29/21 01:00 110 H 22 104/57 L 97 08/29/21 00:30 98 H 18 105/53 L 95 08/29/21 00:00 104 H 13 98/61 L 98 08/28/21 23:31 21 117/65 99 08/28/21 23:00 122 H 18 115/68 100 08/28/21 22:47 120 H 17 97 08/28/21 22:39 115 H 18 105/47 L 94 08/28/21 22:36 37.1 C 118 H 17 105/47 L 96 Laboratory Results Abnormal lab results 08/28/21 08/28/21 08/29/21 Range/Units 22:55 23:32 01:58 Sodium 135 L (136-145) mmol/L Chloride 111 H (98-107) mmol/L Anion Gap 1.0 L (3-11) Glucose 122 H (70-99) mg/dl POC Glucose 116 H (70-99) mg/dl Phosphorus 2.0 L (2.5-4.9) mg/dl Urine Ketones Trace H (Negative) Urine Blood Trace H (Negative) U Epithel Cells (Auto) >30 H (0-5) /lpf Urine Bacteria (Auto) 1+ H (Negative) Diagnostic Findings CXR-Diffuse reticular nodular opacities are new since prior study, might represent infectious/inflammatory process versus other etiology. Suboptimal study due to low inspiratory effort. Follow-up evaluation with PA and lateral chest radiograph is suggested. CT head-No acute intracranial hemorrhage, evidence of acute territorial infarction, or other acute intracranial disease process. EEG-his is a normal asleep routine EEG. Excessive beta activity is a normal variant and can be seen as a medication side effect, i.e. benzodiazepines. There is no evidence of epileptiform activity. MRI brain-There are no areas of restricted diffusion to suggest acute infarction. The midline structures are intact. A small retention cyst within the right maxillary sinus. The mastoid air cells are clear. The ventricles and sulci are within normal limits for age. There is no mass, hematoma, midline shift. The major vascular flow-voids at the skull base are well maintained. Postcontrast sequences show no areas of abnormal enhancement. (1) Accidental drug overdose Encounter type: initial encounter Qualified Code(s): T50.901A - Poisoning by unspecified drugs, medicaments and biological substances, accidental (unintentional), initial encounter
--- NOTE | 2021-08-29 08:26 | XRay Report ---
XR chest 1V portable CLINICAL HISTORY: low o2 COMPARISON STUDY: December 24, 2020 FINDINGS: No pneumothorax. No pleural effusion. Interval prominence of bilateral reticular nodular opacities, most prominent within left lung. Lung v olumes are decreased with crowded lung markings. Cardiomediastinal silhouette is within normal limits in size. No significant pulmonary vascular congestion.. Osseous structures: Redemonstration of healed fracture deformity of the right rib cage. IMPRESSION: 1. Diffuse reticular nodular opacities are new since prior study, might represent infectious/inflamm atory process versus other etiology. Suboptimal study due to low inspiratory effort. Follow-up evalua tion with PA and lateral chest radiograph is suggested. ACT 112: Negative or not required by law. The above report was generated using voice recognition software. It may contain grammatical, syntax o r spelling errors. Electronically signed by: Alicia Hart DO 08/29/2021 8:25 AM
--- NOTE | 2021-08-29 08:38 | Hospitalist Progress Note ---
Date of Service August 29, 2021 Assessment & Plan (1) Seizures: Plan: Recurrent episodes Possibly secondary to substance abuse Rule out brain tumor, epilepsy Discussed with patient's [id number]. She reports that patient admitted to taking Percocet and gabapentin that are not prescribed to her. Reportedly she admitted it in front of ED provider as well. She follows with psychiatrist at [facility], on Seroquel Zoloft Lamictal. Patient usually is open about her substance abuse with [id number]. When I questioned the patient, she denied taking anything that was not prescribed to her. Mood disorder/ PTSD as per records, patient [id number] suspects problems that patient is not disclosing to her family Medical telemetry Ativan as needed seizure precautions Keppra for now for seizure prophylaxis MRI brain - unremarkable EEG - normal asleep routine EEG. Excessive beta activity is a normal variant and can be seen as a medication side effect, i.e. benzodiazepines. There is no evidence of epileptiform activity. Neurology consult Re: Recurrent seizures Appreciate their input Appropriate hold neuropsychotropic meds until patient more awake May need psychiatry consultation inpatient to evaluate patient mood in light of possible substance abuse Hyperglycemia rule out DM Checked hemoglobin A1c - 5.3% Ongoing tobacco abuse Nicotine patch as needed DVT prophylaxis. SCDs, Lovenox 40 mg SQ daily Full code Patient [id number], Ms. Anayeli Muller, can be contacted at # . Admission and Anticipated Discharge Date Admission Date: August 29, 2021 Subjective Patient seen in follow-up for seizure Currently patient is lying in bed, in no acute distress, somnolent but easily arousable She says she has mild headache however otherwise denies any chest pain shortness of breath, dizziness lightheadedness She cannot recall events of yesterday or day before yesterday Reports she lives with her father and that she was at home and that all she can remember Neurology to see later today MRI obtained overnight, seems unremarkable [employer] form filled out as patient not able to drive Review of Systems Review of Systems: All systems reviewed & are unremarkable except as noted in Subjective Physical Exam Physical Exam: GENERAL: young F in NAD, somnolent but easily arousable HEENT: NC/AT, EOMI, PERRL NECK : Supple, no tenderness CHEST : CTAB, no wheezing, rhonchi or crackles HEART : RRR, no obvious murmurs ABDOMEN: soft, nontender, + bowel sounds EXTREMITIES : No LE swelling/tenderness, moves extremities NEUROLOGIC : Somnolent but easily arousable, answering questions appropriately, however cannot remember events prior to coming to hospital,no facial asymmetry, speech fluent, moves extremities SKIN: Normal color, warm Results & Data Results & Data ([facility]) Vital Signs (Past 12 Hours) Vital Signs Temp Pulse Pulse Resp BP BP Pulse Ox 08/29/21 07:43 83 08/29/21 07:17 37.1 C 91 H 18 114/72 91 08/29/21 04:57 82 08/29/21 04:38 36.7 C 94 H 16 100/60 97 08/29/21 04:11 93 H 80/42 L 97 08/29/21 04:01 80 16 80/46 L 92 08/29/21 03:50 85 18 78/38 L 93 08/29/21 03:31 93 H 17 81/44 L 98 08/29/21 03:00 93 H 18 89/41 L 92 08/29/21 02:33 93 08/29/21 02:30 94 H 17 88/40 L 93 08/29/21 02:00 98 H 19 90/45 L 92 08/29/21 01:40 88 L 08/29/21 01:30 102 H 19 104/60 96 08/29/21 01:00 110 H 22 104/57 L 97 08/29/21 00:30 98 H 18 105/53 L 95 08/29/21 00:00 104 H 13 98/61 L 98 08/28/21 23:31 21 117/65 99 08/28/21 23:00 122 H 18 115/68 100 08/28/21 22:47 120 H 17 97 08/28/21 22:39 115 H 18 105/47 L 94 08/28/21 22:36 37.1 C 118 H 17 105/47 L 96 Laboratory Results 08/29/21 08/29/21 08/29/21 Range/Units 08:21 03:28 03:28 WBC (4.8-10.8) K/uL RBC (4.2-5.4) M/uL Hgb (12.0-16.0) g/dL Hct (37-47) % MCV (80-100) fL MCH (25-34) pg MCHC (32-36) g/dL RDW Std Deviation (36.4-46.3) fL RDW Coeff of Joe (11.5-14.5) % Plt Count (130-400) K/uL MPV (7.4-10.4) fL Immature Gran % (Auto) % Neut % (Auto) % Lymph % (Auto) % [place] % (Auto) % Eos % (Auto) % Baso % (Auto) % Neut # (Auto) (1.4-6.5) K/uL Lymph # (Auto) (1.2-3.4) K/uL [place] # (Auto) (0.11-0.59) K/uL Eos # (Auto) (0-0.5) K/uL Baso # (Auto) (0-0.2) K/uL Immature Gran # (Auto) (0.00-0.02) K/uL Sodium (136-145) mmol/L Potassium (3.5-5.1) mmol/L Chloride (98-107) mmol/L Carbon Dioxide (21-32) mmol/L Anion Gap (3-11) BUN (7-18) mg/dl Creatinine (0.6-1.2) mg/dl Est Cr Clr Drug Dosing ml/min Est GFR ( Amer) ml/min Est GFR (Non-Af Amer) ml/min BUN/Creatinine Ratio (10-20) Glucose (70-99) mg/dl POC Glucose (70-99) mg/dl Estimat Average Glucose mg/dl Hemoglobin A1c (4.5-5.6) % Lactate 2.0 (0.4-2.0) mmol/L Calcium (8.5-10.1) mg/dl Phosphorus (2.5-4.9) mg/dl Magnesium (1.8-2.4) mg/dl Total Bilirubin (0.2-1) mg/dl AST (15-37) U/L ALT (12-78) U/L Alkaline Phosphatase (45-117) U/L Ammonia 26.0 (11-32) umol/L Total Creatine Kinase Pending Troponin I (0-0.045) ng/ml Total Protein (6.4-8.2) gm/dl Albumin (3.4-5.0) gm/dl Globulin (2.5-4.0) gm/dl Albumin/Globulin Ratio (0.9-2) HCG, Qual (Negative) Urine Color Urine Appearance (Clear) Urine pH (4.5-7.5) Ur Specific Jermyn (1.000-1.030) Urine Protein (Negative) Urine Glucose (UA) (Negative) Urine Ketones (Negative) Urine Blood (Negative) Urine Nitrite (Negative) Urine Bilirubin (Negative) Urine Urobilinogen (Negative) Ur Leukocyte Esterase (Negative) Urine WBC (Auto) (0-5) /hpf Urine RBC (Auto) (0-4) /hpf U Hyaline Cast (Auto) (0-5) /lpf U Epithel Cells (Auto) (0-5) /lpf Urine Bacteria (Auto) (Negative) Urine Opiates Screen (Neg) Ur Methadone, Qual (Neg) Urine Barbiturates (Neg) Ur Phencyclidine (PCP) (Neg) U Amphetamin/Meth Scrn (Neg) MDMA (Ecstasy) Screen (Neg) U Benzodiazepines Scrn (Neg) Ur Cocaine Metabolite (Neg) U Marijuana (THC) Screen (Neg) Ethyl Alcohol mg/dL (0-3) mg/dl Lyme Disease IgG Ab (Negative) Lyme Disease IgM Ab (Negative) COVID-19 Eval Order SARS-CoV-2 (PCR) (Negative) 08/29/21 08/29/21 08/29/21 Range/Units 01:58 01:54 01:54 WBC (4.8-10.8) K/uL RBC (4.2-5.4) M/uL Hgb (12.0-16.0) g/dL Hct (37-47) % MCV (80-100) fL MCH (25-34) pg MCHC (32-36) g/dL RDW Std Deviation (36.4-46.3) fL RDW Coeff of Joe (11.5-14.5) % Plt Count (130-400) K/uL MPV (7.4-10.4) fL Immature Gran % (Auto) % Neut % (Auto) % Lymph % (Auto) % [place] % (Auto) % Eos % (Auto) % Baso % (Auto) % Neut # (Auto) (1.4-6.5) K/uL Lymph # (Auto) (1.2-3.4) K/uL [place] # (Auto) (0.11-0.59) K/uL Eos # (Auto) (0-0.5) K/uL Baso # (Auto) (0-0.2) K/uL Immature Gran # (Auto) (0.00-0.02) K/uL Sodium (136-145) mmol/L Potassium (3.5-5.1) mmol/L Chloride (98-107) mmol/L Carbon Dioxide (21-32) mmol/L Anion Gap (3-11) BUN (7-18) mg/dl Creatinine (0.6-1.2) mg/dl Est Cr Clr Drug Dosing ml/min Est GFR ( Amer) ml/min Est GFR (Non-Af Amer) ml/min BUN/Creatinine Ratio (10-20) Glucose (70-99) mg/dl POC Glucose 116 H (70-99) mg/dl Estimat Average Glucose mg/dl Hemoglobin A1c (4.5-5.6) % Lactate (0.4-2.0) mmol/L Calcium (8.5-10.1) mg/dl Phosphorus (2.5-4.9) mg/dl Magnesium (1.8-2.4) mg/dl Total Bilirubin (0.2-1) mg/dl AST (15-37) U/L ALT (12-78) U/L Alkaline Phosphatase (45-117) U/L Ammonia (11-32) umol/L Total Creatine Kinase Troponin I (0-0.045) ng/ml Total Protein (6.4-8.2) gm/dl Albumin (3.4-5.0) gm/dl Globulin (2.5-4.0) gm/dl Albumin/Globulin Ratio (0.9-2) HCG, Qual (Negative) Urine Color Urine Appearance (Clear) Urine pH (4.5-7.5) Ur Specific J[place] (1.000-1.030) Urine Protein (Negative) Urine Glucose (UA) (Negative) Urine Ketones (Negative) Urine Blood (Negative) Urine Nitrite (Negative) Urine Bilirubin (Negative) Urine Urobilinogen (Negative) Ur Leukocyte Esterase (Negative) Urine WBC (Auto) (0-5) /hpf Urine RBC (Auto) (0-4) /hpf U Hyaline Cast (Auto) (0-5) /lpf U Epithel Cells (Auto) (0-5) /lpf Urine Bacteria (Auto) (Negative) Urine Opiates Screen (Neg) Ur Methadone, Qual (Neg) Urine Barbiturates (Neg) Ur Phencyclidine (PCP) (Neg) U Amphetamin/Meth Scrn (Neg) MDMA (Ecstasy) Screen (Neg) U Benzodiazepines Scrn (Neg) Ur Cocaine Metabolite (Neg) U Marijuana (THC) Screen (Neg) Ethyl Alcohol mg/dL (0-3) mg/dl Lyme Disease IgG Ab (Negative) Lyme Disease IgM Ab (Negative) COVID-19 Eval Order Covid19 at [facility] SARS-CoV-2 (PCR) NEGATIVE (Negative) 08/28/21 08/28/21 08/28/21 Range/Units 23:32 23:32 22:55 WBC (4.8-10.8) K/uL RBC (4.2-5.4) M/uL Hgb (12.0-16.0) g/dL Hct (37-47) % MCV (80-100) fL MCH (25-34) pg MCHC (32-36) g/dL RDW Std Deviation (36.4-46.3) fL RDW Coeff of Joe (11.5-14.5) % Plt Count (130-400) K/uL MPV (7.4-10.4) fL Immature Gran % (Auto) % Neut % (Auto) % Lymph % (Auto) % [place] % (Auto) % Eos % (Auto) % Baso % (Auto) % Neut # (Auto) (1.4-6.5) K/uL Lymph # (Auto) (1.2-3.4) K/uL [place] # (Auto) (0.11-0.59) K/uL Eos # (Auto) (0-0.5) K/uL Baso # (Auto) (0-0.2) K/uL Immature Gran # (Auto) (0.00-0.02) K/uL Sodium (136-145) mmol/L Potassium (3.5-5.1) mmol/L Chloride (98-107) mmol/L Carbon Dioxide (21-32) mmol/L Anion Gap (3-11) BUN (7-18) mg/dl Creatinine (0.6-1.2) mg/dl Est Cr Clr Drug Dosing ml/min Est GFR ( Amer) ml/min Est GFR (Non-Af Amer) ml/min BUN/Creatinine Ratio (10-20) Glucose (70-99) mg/dl POC Glucose (70-99) mg/dl Estimat Average Glucose mg/dl Hemoglobin A1c (4.5-5.6) % Lactate (0.4-2.0) mmol/L Calcium (8.5-10.1) mg/dl Phosphorus (2.5-4.9) mg/dl Magnesium (1.8-2.4) mg/dl Total Bilirubin (0.2-1) mg/dl AST (15-37) U/L ALT (12-78) U/L Alkaline Phosphatase (45-117) U/L Ammonia (11-32) umol/L Total Creatine Kinase Troponin I (0-0.045) ng/ml Total Protein (6.4-8.2) gm/dl Albumin (3.4-5.0) gm/dl Globulin (2.5-4.0) gm/dl Albumin/Globulin Ratio (0.9-2) HCG, Qual (Negative) Urine Color Yellow Urine Appearance Clear (Clear) Urine pH 5.0 (4.5-7.5) Ur Specific Jerm[place] 1.024 (1.000-1.030) Urine Protein Negative (Negative) Urine Glucose (UA) Negative (Negative) Urine Ketones Trace H (Negative) Urine Blood Trace H (Negative) Urine Nitrite Negative (Negative) Urine Bilirubin Negative (Negative) Urine Urobilinogen Negative (Negative) Ur Leukocyte Esterase Negative (Negative) Urine WBC (Auto) 1-5 (0-5) /hpf Urine RBC (Auto) 0-4 (0-4) /hpf U Hyaline Cast (Auto) 1-5 (0-5) /lpf U Epithel Cells (Auto) >30 H (0-5) /lpf Urine Bacteria (Auto) 1+ H (Negative) Urine Opiates Screen Neg (Neg) Ur Methadone, Qual Neg (Neg) Urine Barbiturates Neg (Neg) Ur Phencyclidine (PCP) Neg (Neg) U Amphetamin/Meth Scrn Neg (Neg) MDMA (Ecstasy) Screen Neg (Neg) U Benzodiazepines Scrn Neg (Neg) Ur Cocaine Metabolite Neg (Neg) U Marijuana (THC) Screen Neg (Neg) Ethyl Alcohol mg/dL (0-3) mg/dl Lyme Disease IgG Ab Negative (Negative) Lyme Disease IgM Ab Negative (Negative) COVID-19 Eval Order SARS-CoV-2 (PCR) (Negative) 08/28/21 08/28/21 08/28/21 Range/Units 22:55 22:55 22:55 WBC (4.8-10.8) K/uL RBC (4.2-5.4) M/uL Hgb (12.0-16.0) g/dL Hct (37-47) % MCV (80-100) fL MCH (25-34) pg MCHC (32-36) g/dL RDW Std Deviation (36.4-46.3) fL RDW Coeff of Joe (11.5-14.5) % Plt Count (130-400) K/uL MPV (7.4-10.4) fL Immature Gran % (Auto) % Neut % (Auto) % Lymph % (Auto) % [place] % (Auto) % Eos % (Auto) % Baso % (Auto) % Neut # (Auto) (1.4-6.5) K/uL Lymph # (Auto) (1.2-3.4) K/uL [place] # (Auto) (0.11-0.59) K/uL Eos # (Auto) (0-0.5) K/uL Baso # (Auto) (0-0.2) K/uL Immature Gran # (Auto) (0.00-0.02) K/uL Sodium (136-145) mmol/L Potassium (3.5-5.1) mmol/L Chloride (98-107) mmol/L Carbon Dioxide (21-32) mmol/L Anion Gap (3-11) BUN (7-18) mg/dl Creatinine (0.6-1.2) mg/dl Est Cr Clr Drug Dosing ml/min Est GFR ( Amer) ml/min Est GFR (Non-Af Amer) ml/min BUN/Creatinine Ratio (10-20) Glucose (70-99) mg/dl POC Glucose (70-99) mg/dl Estimat Average Glucose 105 mg/dl Hemoglobin A1c 5.3 (4.5-5.6) % Lactate (0.4-2.0) mmol/L Calcium (8.5-10.1) mg/dl Phosphorus (2.5-4.9) mg/dl Magnesium (1.8-2.4) mg/dl Total Bilirubin (0.2-1) mg/dl AST (15-37) U/L ALT (12-78) U/L Alkaline Phosphatase (45-117) U/L Ammonia (11-32) umol/L Total Creatine Kinase Troponin I (0-0.045) ng/ml Total Protein (6.4-8.2) gm/dl Albumin (3.4-5.0) gm/dl Globulin (2.5-4.0) gm/dl Albumin/Globulin Ratio (0.9-2) HCG, Qual Negative (Negative) Urine Color Urine Appearance (Clear) Urine pH (4.5-7.5) Ur Specific [place] (1.000-1.030) Urine Protein (Negative) Urine Glucose (UA) (Negative) Urine Ketones (Negative) Urine Blood (Negative) Urine Nitrite (Negative) Urine Bilirubin (Negative) Urine Urobilinogen (Negative) Ur Leukocyte Esterase (Negative) Urine WBC (Auto) (0-5) /hpf Urine RBC (Auto) (0-4) /hpf U Hyaline Cast (Auto) (0-5) /lpf U Epithel Cells (Auto) (0-5) /lpf Urine Bacteria (Auto) (Negative) Urine Opiates Screen (Neg) Ur Methadone, Qual (Neg) Urine Barbiturates (Neg) Ur Phencyclidine (PCP) (Neg) U Amphetamin/Meth Scrn (Neg) MDMA (Ecstasy) Screen (Neg) U Benzodiazepines Scrn (Neg) Ur Cocaine Metabolite (Neg) U Marijuana (THC) Screen (Neg) Ethyl Alcohol mg/dL < 3.0 (0-3) mg/dl Lyme Disease IgG Ab (Negative) Lyme Disease IgM Ab (Negative) COVID-19 Eval Order SARS-CoV-2 (PCR) (Negative) 08/28/21 08/28/21 Range/Units 22:55 22:55 WBC 8.75 (4.8-10.8) K/uL RBC 4.38 (4.2-5.4) M/uL Hgb 13.7 (12.0-16.0) g/dL Hct 39.7 (37-47) % MCV 90.6 (80-100) fL MCH 31.3 (25-34) pg MCHC 34.5 (32-36) g/dL RDW Std Deviation 42.8 (36.4-46.3) fL RDW Coeff of Joe 12.9 (11.5-14.5) % Plt Count 253 (130-400) K/uL MPV 8.7 (7.4-10.4) fL Immature Gran % (Auto) 0.2 % Neut % (Auto) 70.1 % Lymph % (Auto) 22.1 % [place] % (Auto) 5.0 % Eos % (Auto) 2.4 % Baso % (Auto) 0.2 % Neut # (Auto) 6.13 (1.4-6.5) K/uL Lymph # (Auto) 1.93 (1.2-3.4) K/uL [place] # (Auto) 0.44 (0.11-0.59) K/uL Eos # (Auto) 0.21 (0-0.5) K/uL Baso # (Auto) 0.02 (0-0.2) K/uL Immature Gran # (Auto) 0.02 (0.00-0.02) K/uL Sodium 135 L (136-145) mmol/L Potassium 3.9 (3.5-5.1) mmol/L Chloride 111 H (98-107) mmol/L Carbon Dioxide 23 (21-32) mmol/L Anion Gap 1.0 L (3-11) BUN 13 (7-18) mg/dl Creatinine 0.99 (0.6-1.2) mg/dl Est Cr Clr Drug Dosing 80.4 ml/min Est GFR ( Amer) 86.2 ml/min Est GFR (Non-Af Amer) 74.3 ml/min BUN/Creatinine Ratio 12.8 (10-20) Glucose 122 H (70-99) mg/dl POC Glucose (70-99) mg/dl Estimat Average Glucose mg/dl Hemoglobin A1c (4.5-5.6) % Lactate (0.4-2.0) mmol/L Calcium 8.7 (8.5-10.1) mg/dl Phosphorus 2.0 L (2.5-4.9) mg/dl Magnesium 2.1 (1.8-2.4) mg/dl Total Bilirubin 0.2 (0.2-1) mg/dl AST 16 (15-37) U/L ALT 19 (12-78) U/L Alkaline Phosphatase 57 (45-117) U/L Ammonia (11-32) umol/L Total Creatine Kinase Troponin I < 0.015 (0-0.045) ng/ml Total Protein 7.4 (6.4-8.2) gm/dl Albumin 3.9 (3.4-5.0) gm/dl Globulin 3.5 (2.5-4.0) gm/dl Albumin/Globulin Ratio 1.1 (0.9-2) HCG, Qual (Negative) Urine Color Urine Appearance (Clear) Urine pH (4.5-7.5) Ur Specific [place]yn (1.000-1.030) Urine Protein (Negative) Urine Glucose (UA) (Negative) Urine Ketones (Negative) Urine Blood (Negative) Urine Nitrite (Negative) Urine Bilirubin (Negative) Urine Urobilinogen (Negative) Ur Leukocyte Esterase (Negative) Urine WBC (Auto) (0-5) /hpf Urine RBC (Auto) (0-4) /hpf U Hyaline Cast (Auto) (0-5) /lpf U Epithel Cells (Auto) (0-5) /lpf Urine Bacteria (Auto) (Negative) Urine Opiates Screen (Neg) Ur Methadone, Qual (Neg) Urine Barbiturates (Neg) Ur Phencyclidine (PCP) (Neg) U Amphetamin/Meth Scrn (Neg) MDMA (Ecstasy) Screen (Neg) U Benzodiazepines Scrn (Neg) Ur Cocaine Metabolite (Neg) U Marijuana (THC) Screen (Neg) Ethyl Alcohol mg/dL (0-3) mg/dl Lyme Disease IgG Ab (Negative) Lyme Disease IgM Ab (Negative) COVID-19 Eval Order SARS-CoV-2 (PCR) (Negative) Medications Administered Current Inpatient Medications Acetaminophen (Acetaminophen 325 Mg Tab) 650 mg PO Q4H PRN PRN Reason: Pain or Fever Stop: 09/28/21 05:02 Acetaminophen (Acetaminophen 325 Mg Tab) 650 mg PO Q6H PRN PRN Reason: Fever/pain Stop: 09/28/21 05:02 Lorazepam (Ativan) 1 mg in 2 mls @ 0.5 mls/min IV Q10M PRN PRN Reason: seizures Stop: 09/28/21 02:47 Lactated Ringer's (Lr) 1,000 mls @ 100 mls/hr IV .Q10H ONE Stop: 08/29/21 12:47 Last Admin: 08/29/21 03:32 Dose: 100 mls/hr Documented by: Levetiracetam 500 mg/ Sodium (Chloride) 105 mls @ 440 mls/hr IV BID DIPAK Stop: 09/28/21 20:59 Ibuprofen (Ibuprofen 200 Mg Tab) 200 mg PO Q6H PRN PRN Reason: Mild Pain Stop: 09/28/21 05:02 Ketorolac Tromethamine (Ketorolac Tromethamine 15 Mg/Ml Vial) 15 mg IV Q6H PRN PRN Reason: Pain Stop: 09/03/21 05:02 Ondansetron HCl (Ondansetron Inj 2 Mg/Ml 2 Ml Vial) 4 mg IV Q6H PRN PRN Reason: Nausea And Vomiting Stop: 09/28/21 05:02
--- NOTE | 2021-08-29 13:11 | Electroencephalogram ---
EEG Procedure Note Date of Service August 29, 2021 Start / End Times Start Time: 09:58 End Time: 10:[address] Philip Holliday History A 36-year-old woman with witnessed seizure. EEG performed for evaluation epileptiform activity. Home Medication List Medication Instructions Recorded Confirmed Type buprenorphine 8 mg-naloxone 2 mg 1 tab SUBLINGUAL DAILY 07/07/21 08/28/21 History sublingual tablet lamotrigine 25 mg tablet 75 mg PO QAM 07/07/21 08/28/21 History quetiapine 100 mg tablet 150 mg PO HS 07/07/21 08/28/21 History sertraline 100 mg tablet 100 mg PO DAILY 07/07/21 08/28/21 History Inpatient Medication List Discontinued Medications Acetaminophen (Acetaminophen 500 Mg Tab) 1,000 mg PO NOW STA Stop: 08/29/21 01:32 Last Admin: 08/29/21 03:57 Dose: Not Given Documented by: [id number] Sodium Chloride (Nss 1000ml) 1,000 mls @ 999 mls/hr IV .Q1H1M DIPAK Stop: 08/29/21 00:00 Last Infusion: 08/29/21 00:05 Dose: 0 mls/hr Documented by: [id number] Admin: 08/28/21 22:57 Dose: 999 mls/hr Documented by: [id number] Sodium Chloride (Nss 1000ml) 1,000 mls @ 999 mls/hr IV .Q1H1M ONE Stop: 08/29/21 02:16 Last Infusion: 08/29/21 03:36 Dose: 0 mls/hr Documented by: [id number] Admin: 08/29/21 01:47 Dose: 999 mls/hr Documented by: [id number] Lorazepam (Ativan) 2 mg in 4 mls @ 4 mls/min IV NOW STA Stop: 08/29/21 01:42 Last Admin: 08/29/21 01:50 Dose: 4 mls/min Documented by: [id number] Levetiracetam 2,000 mg/ Sodium (Chloride) 270 mls @ 999 mls/hr IV NOW STA Stop: 08/29/21 01:57 Last Infusion: 08/29/21 02:21 Dose: 0 mls/hr Documented by: [id number] Admin: 08/29/21 02:02 Dose: 999 mls/hr Documented by: [id number] Levetiracetam 2,000 mg/ Sodium (Chloride) 270 mls @ 999 mls/hr IV NOW STA Stop: 08/29/21 02:07 Last Admin: 08/29/21 02:16 Dose: Not Given Documented by: [id number] Lactated Ringer's (Lr) 1,000 mls @ 100 mls/hr IV .Q10H ONE Stop: 08/29/21 12:47 Last Infusion: 08/29/21 11:28 Dose: 0 mls/hr Documented by: [id number] Admin: 08/29/21 03:32 Dose: 100 mls/hr Documented by: [id number] Sodium Chloride (Nss 1000ml) 1,000 mls @ 999 mls/hr IV .Q1H1M ONE Stop: 08/29/21 04:53 Last Infusion: 08/29/21 05:02 Dose: 0 mls/hr Documented by: [id number] Admin: 08/29/21 04:01 Dose: 999 mls/hr Documented by: [id number] Ketorolac Tromethamine (Ketorolac Tromethamine 15 Mg/Ml Vial) 10 mg IV NOW ONE Stop: 08/29/21 01:32 Last Admin: 08/29/21 01:35 Dose: 10 mg Documented by: [id number] Lorazepam (Lorazepam 2 Mg/4 Ml Vial) Confirm Administered Dose 2 mg .ROUTE .STK- MED ONE Stop: 08/29/21 01:43 Last Admin: 08/29/21 01:50 Dose: Not Given Documented by: [id number] Ondansetron HCl (Ondansetron Inj 2 Mg/Ml 2 Ml Vial) 4 mg IV NOW STA Stop: 08/29/21 00:00 Last Admin: 08/29/21 00:02 Dose: 4 mg Documented by: [id number] Ondansetron HCl (Ondansetron Inj 2 Mg/Ml 2 Ml Vial) Confirm Administered Dose 4 mg .ROUTE .STK-MED ONE Stop: 08/29/21 00:01 Last Admin: 08/29/21 00:05 Dose: Not Given Documented by: [id number] Potassium Phosphate (Pot Phosphate Monobasic W/ Sod Tab) 2 tab PO NOW STA Stop: 08/28/21 23:45 Last Admin: 08/29/21 06:02 Dose: 2 tab Documented by: [id number] Description This is a 21 electrode EEG with a single channel dedicated to limited EKG. The electrodes were placed in accordance with the International 10-20 system. REPORT: At the onset of the EEG the patient is asleep. The background is symmetric. The posterior dominant rhythm is not well seen. Instead the background predominantly consisted of 5-7 Hz theta activity with some intermixed delta activity. There is an increased amount of low-amplitude beta activity seen throughout. Photic stimulation does not induce any abnormalities. No epileptiform discharges are seen. Interpretation IMPRESSION: This is a normal asleep routine EEG. Excessive beta activity is a normal variant and can be seen as a medication side effect, i.e. benzodiazepines. There is no evidence of epileptiform activity.
[2021-08-29] MEDS ORDERED: GADOBUTROL 65ML VIAL IV ONE (13:16)
--- NOTE | 2021-08-29 14:25 | Magnetic Resonance Report ---
Brain MRI WITH AND WITHOUT CONTRAST HISTORY: sz TECHNIQUE: Multiplanar multisequence MRI of the brain was performed both before and after the intrave nous administration of contrast. COMPARISON STUDY: None. FINDINGS: There are no areas of restricted diffusion to suggest acute infarction. The midline structu res are intact. A small retention cyst within the right maxillary sinus. The mastoid air cells are cl ear. The ventricles and sulci are within normal limits for age. There is no mass, hematoma, midline s hift. The major vascular flow-voids at the skull base are well maintained. Postcontrast sequences paul w no areas of abnormal enhancement. IMPRESSION: No acute intracranial abnormality. ACT 112: Negative or not required by law. Electronically signed by: Chemo Sanchez M.D. 08/29/2021 2:24 PM
[2021-08-29] MEDS: cefTRIAXone SODIUM 2,000 MG in DEXTROSE 5% 50 ML IV SCH (17:30)
--- NOTE | 2021-08-29 18:56 | XRay Report ---
TWO VIEW CHEST CLINICAL HISTORY: Hypoxia. Follow-up abnormal chest x-ray. FINDINGS: PA and lateral chest radiographs are compared to study performed earlier the same day 2020. The cardiomediastinal silhouette is unremarkable. The lungs and pleural spaces are clear. Ther e is no pneumothorax. There are healed right-sided rib fractures. IMPRESSION: No active disease in the chest. ACT 112: Negative or not required by law. Electronically signed by: Rajinder Goodwin M.D. 08/29/2021 6:54 PM
[2021-08-29] MEDS: levETIRAcetam 500 MG in 0.9 % SODIUM CHLORIDE 100 ML IV SCH (20:39)
--- NOTE | 2021-08-30 05:22 | Electrocardiogram Report ---
Test Reason : Blood Pressure : / mmHG Vent. Rate : 115 BPM Atrial Rate : 115 BPM P-R Int : 128 ms QRS Dur : 072 ms QT Int : 332 ms P-R-T Axes : 050 013 041 degrees QTc Int : 459 ms Sinus tachycardia Possible Left atrial enlargement Nonspecific ST abnormality Abnormal ECG When compared with ECG of 21-DEC-2020 10:25, Vent. rate has increased BY 52 BPM Confirmed by Nikolas Soto ([id number]) on 08/30/2021 5:22:08 AM Referred By: REFERRED SELF Confirmed By:Nikolas Soto
[2021-08-30 07:09] LABS: Basophils # (auto) 0.02 K/uL (0-0.2); Basophils % (auto) 0.4 %; Eosinophils # (auto) 0.14 K/uL (0-0.5); Eosinophils % (auto) 2.5 %; Hematocrit (blood only) 34.7 % (37-47); Hemoglobin 11.5 g/dL (12.0-16.0); Lymphocytes # (auto) 1.68 K/uL (1.2-3.4); Lymphocytes % (auto) 29.9 %; Mean Corpuscular Hemoglobin 29.8 pg (25-34); Mean Corpuscular Hgb Conc 33.1 g/dL (32-36); Mean Corpuscular Volume 89.9 fL (80-100); Mean Platelet Volume 8.9 fL (7.4-10.4); Monocytes # (auto) 0.35 K/uL (0.11-0.59); Monocytes % (auto) 6.2 %; Neutrophils # (auto) 3.43 K/uL (1.4-6.5); Platelet Count 169 K/uL (130-400); RDW Standard Deviation 42.4 fL (36.4-46.3); Red Blood Count 3.86 M/uL (4.2-5.4); White Blood Count 5.62 K/uL (4.8-10.8)
--- NOTE | 2021-08-30 07:19 | Hospitalist Progress Note ---
Date of Service August 30, 2021 Assessment & Plan (1) Seizures: Plan: Recurrent episodes Possibly secondary to substance abuse Rule out brain tumor, epilepsy Discussed with patient's [id number]. She reports that patient admitted to taking Percocet and gabapentin that are not prescribed to her. She follows with psychiatrist at [facility], on Seroquel Zoloft Lamictal. Patient usually is open about her substance abuse with [id number]. When I questioned the patient, she denied taking anything that was not prescribed to her. Mood disorder/ PTSD as per records, patient wxhuuz-ss-vda suspects problems that patient is not disclosing to her family Medical telemetry Ativan as needed seizure precautions Keppra for now for seizure prophylaxis MRI brain - unremarkable EEG - normal asleep routine EEG. Excessive beta activity is a normal variant and can be seen as a medication side effect, i.e. benzodiazepines. There is no evidence of epileptiform activity. Neurology consult Re: Recurrent seizures Appreciate their input - recommend to continue Keppra 500 every 12 p.o. for now, and and follow-up with neurology in 4 to 6 weeks. Not likely to take indefinitely. Held neuropsychotropic meds on admission - will discuss w/ psychiatry about restarting Psychiatry consulted - appreciate their input Hyperglycemia rule out DM Checked hemoglobin A1c - 5.3% Ongoing tobacco abuse Nicotine patch as needed DVT prophylaxis. SCDs, Lovenox 40 mg SQ daily Full code Patient [id number], Ms. Anayeli Muller, can be contacted at # . Admission and Anticipated Discharge Date Admission Date: August 29, 2021 Subjective Patient seen in follow-up for seizure Currently patient is lying in bed, in no acute distress, somnolent but easily arousable Denies any chest pain shortness of breath, dizziness lightheadedness She does not remember talking to me yesterday or seeing Dr. Keyon Shea form filled out as patient not able to drive Psychiatry contacted, psychiatry liaison contacted Anayeli (patient [id number] ) last evening I updated Anayeli today as well Review of Systems Review of Systems: All systems reviewed & are unremarkable except as noted in Subjective Physical Exam Physical Exam: GENERAL: young F in NAD, somnolent but easily arousable HEENT: NC/AT, EOMI, PERRL NECK : Supple, no tenderness CHEST : CTAB, no wheezing, rhonchi or crackles HEART : RRR, no obvious murmurs ABDOMEN: soft, nontender, + bowel sounds EXTREMITIES : No LE swelling/tenderness, moves extremities NEUROLOGIC : Somnolent but easily arousable, answering questions appropriately, however cannot remember much of yesterday, no facial asymmetry, speech fluent, moves extremities SKIN: Normal color, warm Results & Data Results & Data ([facility]) Vital Signs (Past 12 Hours) Vital Signs Temp Pulse Pulse Resp BP Pulse Ox 08/30/21 03:00 36.4 C L 70 18 98/61 L 98 08/30/21 00:06 65 08/29/21 22:00 36.5 C 73 16 91/54 L 97 Laboratory Results 08/30/21 08/30/21 Range/Units 06:22 06:22 WBC 5.62 (4.8-10.8) K/uL RBC 3.86 L (4.2-5.4) M/uL Hgb 11.5 L (12.0-16.0) g/dL Hct 34.7 L (37-47) % MCV 89.9 (80-100) fL MCH 29.8 (25-34) pg MCHC 33.1 (32-36) g/dL RDW Std Deviation 42.4 (36.4-46.3) fL RDW Coeff of Joe 13.0 (11.5-14.5) % Plt Count 169 (130-400) K/uL MPV 8.9 (7.4-10.4) fL Immature Gran % (Auto) 0.0 % Neut % (Auto) 61.0 % Lymph % (Auto) 29.9 % [place] % (Auto) 6.2 % Eos % (Auto) 2.5 % Baso % (Auto) 0.4 % Neut # (Auto) 3.43 (1.4-6.5) K/uL Lymph # (Auto) 1.68 (1.2-3.4) K/uL [place] # (Auto) 0.35 (0.11-0.59) K/uL Eos # (Auto) 0.14 (0-0.5) K/uL Baso # (Auto) 0.02 (0-0.2) K/uL Immature Gran # (Auto) 0.00 (0.00-0.02) K/uL Sodium 142 D (136-145) mmol/L Potassium 4.0 (3.5-5.1) mmol/L Chloride 113 H (98-107) mmol/L Carbon Dioxide 23 (21-32) mmol/L Anion Gap 6.0 (3-11) BUN 7 D (7-18) mg/dl Creatinine 0.59 L D (0.6-1.2) mg/dl Est Cr Clr Drug Dosing 134.1 ml/min Est GFR ( Amer) 138.6 ml/min Est GFR (Non-Af Amer) 119.6 ml/min BUN/Creatinine Ratio 11.4 (10-20) Glucose 78 (70-99) mg/dl Calcium 8.4 L (8.5-10.1) mg/dl Phosphorus 2.7 (2.5-4.9) mg/dl Magnesium 1.8 (1.8-2.4) mg/dl Medications Administered Current Inpatient Medications Acetaminophen (Acetaminophen 325 Mg Tab) 650 mg PO Q4H PRN PRN Reason: Pain or Fever Stop: 09/28/21 05:02 Acetaminophen (Acetaminophen 325 Mg Tab) 650 mg PO Q6H PRN PRN Reason: Fever/pain Stop: 09/28/21 05:02 Enoxaparin Sodium (Enoxaparin Inj 40 Mg/0.4 Ml Syr) 40 mg SQ QAM DIPAK Stop: 09/29/21 08:59 Last Admin: 08/30/21 08:59 Dose: 40 mg Documented by: Lorazepam (Ativan) 1 mg in 2 mls @ 0.5 mls/min IV Q10M PRN PRN Reason: seizures Stop: 09/28/21 02:47 Levetiracetam 500 mg/ Sodium (Chloride) 105 mls @ 440 mls/hr IV BID DIPAK Stop: 09/28/21 20:59 Last Infusion: 08/30/21 09:41 Dose: Infused Documented by: Ceftriaxone Sodium 2,000 mg/ (Dextrose) 70 mls @ 140 mls/hr IV Q24H [facility]; Protocol Stop: 09/03/21 16:59 Last Infusion: 08/29/21 18:35 Dose: Infused Documented by: Ibuprofen (Ibuprofen 200 Mg Tab) 200 mg PO Q6H PRN PRN Reason: Mild Pain Stop: 09/28/21 05:02 Ketorolac Tromethamine (Ketorolac Tromethamine 15 Mg/Ml Vial) 15 mg IV Q6H PRN PRN Reason: Pain Stop: 09/03/21 05:02 Ondansetron HCl (Ondansetron Inj 2 Mg/Ml 2 Ml Vial) 4 mg IV Q6H PRN PRN Reason: Nausea And Vomiting Stop: 09/28/21 05:02
[2021-08-30 07:53] LABS: BUN Creatinine Ratio 11.4 (10-20); Calcium 8.4 mg/dl (8.5-10.1); Creatinine Clr Calc Pharmacy 134.1 ml/min; Est GFR (African American) 138.6 ml/min; Est GFR (Non-African American) 119.6 ml/min; Magnesium 1.8 mg/dl (1.8-2.4); Phosphorus 2.7 mg/dl (2.5-4.9)
[2021-08-30] MEDS: ENOXAPARIN INJ 40 MG/0.4 ML SYR SQ SCH (08:59)
[2021-08-30] MEDS: levETIRAcetam 500 MG in 0.9 % SODIUM CHLORIDE 100 ML IV SCH ×2 (08:59→20:10)
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
[2021-08-30] MEDS: cefTRIAXone SODIUM 2,000 MG in DEXTROSE 5% 50 ML IV SCH (16:35)
[2021-08-30] MEDS ORDERED: QUEtiapine FUMARATE 25 MG TABLET PO SCH (21:00)
[2021-08-31 08:09] LABS: Hematocrit (blood only) 36.1 % (37-47); Hemoglobin 12.6 g/dL (12.0-16.0); Mean Corpuscular Hemoglobin 30.4 pg (25-34); Mean Corpuscular Hgb Conc 34.9 g/dL (32-36); Mean Platelet Volume 8.6 fL (7.4-10.4); Platelet Count 186 K/uL (130-400); RDW Coefficient of Variation 12.8 % (11.5-14.5); RDW Standard Deviation 41.1 fL (36.4-46.3); Red Blood Count 4.15 M/uL (4.2-5.4); White Blood Count 5.13 K/uL (4.8-10.8)
[2021-08-31] MEDS: levETIRAcetam 500 MG in 0.9 % SODIUM CHLORIDE 100 ML IV SCH (08:23)
[2021-08-31] MEDS: ENOXAPARIN INJ 40 MG/0.4 ML SYR SQ SCH (08:25)
[2021-08-31 08:41] LABS: Calcium 8.7 mg/dl (8.5-10.1); Creatinine Clr Calc Pharmacy 113.1 ml/min; Magnesium 2.2 mg/dl (1.8-2.4); Potassium 3.2 mmol/L (3.5-5.1)
[2021-08-31 08:52] LABS: Phosphorus 3.7 mg/dl (2.5-4.9)
[2021-08-31] MEDS ORDERED: lamoTRIgine 25 MG TAB PO SCH (09:00)
[2021-08-31] MEDS ORDERED: SERTRALINE HCL 100 MG TABLET PO SCH (09:00)
[2021-08-31] MEDS ORDERED: POTASSIUM CHLORIDE CRTAB 20 MEQ TABCR PO STA (10:34)
--- NOTE | 2021-08-31 10:34 | Hospitalist Progress Note ---
Date of Service August 31, 2021 Assessment & Plan (1) Seizures: Plan: Recurrent episodes Possibly secondary to substance abuse Rule out brain tumor, epilepsy Discussed with patient's [id number], Anayeli. She reports that patient admitted to taking Percocet and gabapentin that are not prescribed to her. She follows with psychiatrist at [facility], on Seroquel Zoloft Lamictal. Patient usually is open about her substance abuse with [id number]. Mood disorder/ PTSD as per records, patient kryheh-eh-uox suspects problems that patient is not disclosing to her family MRI brain - unremarkable EEG - normal asleep routine EEG. Excessive beta activity is a normal variant and can be seen as a medication side effect, i.e. benzodiazepines. There is no evidence of epileptiform activity. Neurology consult Re: Recurrent seizures Appreciate their input - recommend to continue Keppra 500 every 12 p.o. for now, and and follow-up with neurology in 4 to 6 weeks. Not likely to take indefinitely. Held neuropsychotropic meds on admission -discussed with psychiatry and her home medications were resumed Psychiatry consulted - appreciate their input Clinically patient is doing much better, she is awake alert and answering questions appropriately She is aware about our communications with Anayeli, Anayeli will be picking her up after discharge and staying with her at home Hyperglycemia rule out DM Checked hemoglobin A1c - 5.3% Ongoing tobacco abuse Nicotine patch as needed Counseling provided DVT prophylaxis. SCDs, Lovenox 40 mg SQ daily Full code Patient [id number], Ms. Anayeli Muller, can be contacted at # . 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 [employer] form filled out as patient not able to drive Psychiatry contacted, and her home psych medications were resumed Anayeli (patient [id number] ) updated and will be picking up the pt after DC Review of Systems Review of Systems: All systems reviewed & are unremarkable except as noted in Subjective Physical Exam Physical Exam: GENERAL: young F in NAD HEENT: NC/AT, EOMI, PERRL NECK : Supple, no tenderness CHEST : CTAB, no wheezing, rhonchi or crackles HEART : RRR, no obvious murmurs ABDOMEN: soft, nontender, + bowel sounds EXTREMITIES : No LE swelling/tenderness, moves extremities NEUROLOGIC : Awake and alert, answering questions appropriately, no facial asymmetry, speech fluent, moves extremities SKIN: Normal color, warm Results & Data Results & Data ([facility]) Vital Signs (Past 12 Hours) Vital Signs Temp Pulse Pulse Resp BP Pulse Ox 08/31/21 07:49 57 L 08/31/21 07:00 37.1 C 63 18 93/60 L 98 08/31/21 03:00 36.9 C 52 L 18 102/66 97 08/30/21 23:40 55 L 08/30/21 22:53 36.8 C 62 18 97/59 L 95 Laboratory Results 08/31/21 08/31/21 Range/Units 07:25 07:25 WBC 5.13 (4.8-10.8) K/uL RBC 4.15 L (4.2-5.4) M/uL Hgb 12.6 (12.0-16.0) g/dL Hct 36.1 L (37-47) % MCV 87.0 (80-100) fL MCH 30.4 (25-34) pg MCHC 34.9 (32-36) g/dL RDW Std Deviation 41.1 (36.4-46.3) fL RDW Coeff of Joe 12.8 (11.5-14.5) % Plt Count 186 (130-400) K/uL MPV 8.6 (7.4-10.4) fL Sodium 141 (136-145) mmol/L Potassium 3.2 L D (3.5-5.1) mmol/L Chloride 110 H (98-107) mmol/L Carbon Dioxide 24 (21-32) mmol/L Anion Gap 6.0 (3-11) BUN 10 (7-18) mg/dl Creatinine 0.70 (0.6-1.2) mg/dl Est Cr Clr Drug Dosing 113.1 ml/min Est GFR ( Amer) 131.0 ml/min Est GFR (Non-Af Amer) 113.0 ml/min BUN/Creatinine Ratio 14.0 (10-20) Glucose 83 (70-99) mg/dl Calcium 8.7 (8.5-10.1) mg/dl Phosphorus 3.7 D (2.5-4.9) mg/dl Magnesium 2.2 (1.8-2.4) mg/dl Medications Administered Current Inpatient Medications Acetaminophen (Acetaminophen 325 Mg Tab) 650 mg PO Q4H PRN PRN Reason: Pain or Fever Stop: 09/28/21 05:02 Acetaminophen (Acetaminophen 325 Mg Tab) 650 mg PO Q6H PRN PRN Reason: Fever/pain Stop: 09/28/21 05:02 Enoxaparin Sodium (Enoxaparin Inj 40 Mg/0.4 Ml Syr) 40 mg SQ QAM [facility] Stop: 09/29/21 08:59 Last Admin: 08/31/21 08:25 Dose: Not Given Documented by: Lorazepam (Ativan) 1 mg in 2 mls @ 0.5 mls/min IV Q10M PRN PRN Reason: seizures Stop: 09/28/21 02:47 Ceftriaxone Sodium 2,000 mg/ (Dextrose) 70 mls @ 140 mls/hr IV Q24H [facility]; Protocol Stop: 09/03/21 16:59 Last Infusion: 08/30/21 17:20 Dose: Infused Documented by: Ibuprofen (Ibuprofen 200 Mg Tab) 200 mg PO Q6H PRN PRN Reason: Mild Pain Stop: 09/28/21 05:02 Ketorolac Tromethamine (Ketorolac Tromethamine 15 Mg/Ml Vial) 15 mg IV Q6H PRN PRN Reason: Pain Stop: 09/03/21 05:02 Lamotrigine (Lamotrigine 25 Mg Tab) 75 mg PO QAM [facility] Stop: 09/30/21 08:59 Last Admin: 08/31/21 08:24 Dose: 75 mg Documented by: Levetiracetam (Levetiracetam Soln 500 Mg/5 Ml Udp) 500 mg PO Q12H [facility] Stop: 09/30/21 20:59 Ondansetron HCl (Ondansetron Inj 2 Mg/Ml 2 Ml Vial) 4 mg IV Q6H PRN PRN Reason: Nausea And Vomiting Stop: 09/28/21 05:02 Potassium Chloride (Potassium Chloride Crtab 20 Meq Tabcr) 40 meq PO NOW STA Stop: 08/31/21 10:35 Quetiapine Fumarate (Quetiapine Fumarate 25 Mg Tablet) 150 mg PO HS DIPAK Stop: 09/29/21 20:59 Last Admin: 08/30/21 20:09 Dose: 150 mg Documented by: Sertraline HCl (Sertraline Hcl 100 Mg Tablet) 100 mg PO DAILY DIPAK Stop: 09/30/21 08:59 Last Admin: 08/31/21 08:24 Dose: 100 mg Documented by:
--- NOTE | 2021-08-31 11:28 | Discharge Summary ---
Date of Service August 31, 2021 Admission HPI Per Admitting Provider History obtained from patient, family, and records. Limited history from patient secondary to lethargy. Medical history significant for mood disorder, PTSD, drug addiction as per records, chronic pain on Subutex, ongoing tobacco abuse. Last confinement August 2013 for asthma exacerbation. Two witnessed seizure-like activity at home last night by patient's family. Hands shaking/teeth clenching episode lasting 5 minutes each as per patient [id number] with confusion. No incontinence, no tongue biting. Patient complaining of achy headache symptoms. Patient claims she has had seizures in the past. Mpilfg-ih-qty suspects substance abuse as cause of seizures. At the ER patient noted to have another seizure. Ativan and Keppra administered at the ER Patient currently lethargic. SBP 80s. Medical History as above Surgical History : None Family History : Brain aneurysm Personal/Social history : Half pack daily, no EtOH intake, lives with father Admission Exam Per Admitting Provider GENERAL: Lethargic, no respiratory distress SKIN: Normal color, warm HEENT: [place] palpebral conjunctivae, no ptosis, dry buccal mucosa, nasal cannula in place NECK : Supple, no tenderness CHEST : CTA, no tenderness HEART : RRR, no obvious murmurs ABDOMEN: Some distention, nontender EXTREMITIES : No LE swelling/tenderness, no other conspicuous deformities noted NEUROLOGIC : Lethargic, dilated pupils, no facial asymmetry, gait and stance not assessed Principal Diagnosis Seizure Medication/substance abuse UTI Discharge Exam GENERAL: young F in NAD HEENT: NC/AT, EOMI, PERRL NECK : Supple, no tenderness CHEST : CTAB, no wheezing, rhonchi or crackles HEART : RRR, no obvious murmurs ABDOMEN: soft, nontender, + bowel sounds EXTREMITIES : No LE swelling/tenderness, moves extremities NEUROLOGIC : Awake and alert, answering questions appropriately, no facial asymmetry, speech fluent, moves extremities SKIN: Normal color, warm Discharge Data Allergies Allergy/AdvReac Type Severity Reaction Status Date / Time tramadol Allergy Intermediate rash/itchin Verified 08/28/21 23:07 g promethazine AdvReac Intermediate Muscle Verified 08/28/21 23:07 twitching and change in mental status. Consultations 08/29/21 01:53 ED Decision to Admit Stat 08/29/21 05:03 Consult Neurology Routine 08/29/21 15:38 Consult Psychiatry Routine Ordered Studies 08/28/21 22:47 CT head/brain wo con Urgent Impression: No acute intracranial hemorrhage, evidence of acute territorial infarction, or other acute intracranial disease process. 08/29/21 02:48 MR brain seizure wo/w con Routine IMPRESSION: No acute intracranial abnormality. Hospital Course (1) Seizures: Recurrent episodes Possibly secondary to substance abuse Rule out brain tumor, epilepsy Discussed with patient's [id number]-[id number], Anayeli. She reports that patient admit sue to taking Percocet and gabapentin that are not prescribed to her. She follows with psychiatrist at [facility], on Seroquel Zoloft Lamictal. Patient usually is open about her substance abuse with [id number]-[id number]. Mood disorder/ PTSD as per records, patient [id number] suspects problems that patient is not disclosing to her family MRI brain - unremarkable EEG - normal asleep routine EEG. Excessive beta activity is a normal variant and can be seen as a medication side effect, i.e. benzodiazepines. There is no evidence of epileptiform activity. Neurology consult Re: Recurrent seizures Appreciate their input - recommend to continue Keppra 500 every 12 p.o. for now, and and follow-up with neurology in 4 to 6 weeks. Not likely to take indefinitely. Held neuropsychotropic meds on admission -discussed with psychiatry and her home medications were resumed Psychiatry consulted - appreciate their input Clinically patient is doing much better, she is awake alert and answering questions appropriately She is aware about our communications with Anayeli, Anayeli will be picking her up after discharge and staying with her at home Hyperglycemia rule out DM Checked hemoglobin A1c - 5.3% Ongoing tobacco abuse Nicotine patch as needed Counseling provided DVT prophylaxis. SCDs, Lovenox 40 mg SQ daily Full code Patient [id number], Ms. Anayeli Muller, can be contacted at # . Total Time Total Time Spent Total Time Spent (In Minutes): 35 Discharge Plan Discharge Items Patient Disposition: Home - Self-Care Reason For Visit: RECURRENT SZ Discharge Diagnosis: Seizure Medication/substance abuse UTI Condition on Discharge: Good Activity: Per Instructions section Non-emergency contact: Primary Care Provider and Neurologist Call non-emergency contact if: you have any medication questions and your symptoms worsen Follow-up/Referrals: Fabiola Taylor PA-C [Physician Powder Line Repairer] - (Date & Time 11/01/2021 11:20 AM Provider Fabiola Taylor PA-C Department Neurology [facility] ) Abraham Ibrahim MD [Primary Care Provider] - (Date & Time 09/05/2021 3:20 PM Provider Abraham Ibrahim MD Department Family [facility] ) Diet: Regular Addtl Attending Provider Instructions: Follow-up with your primary care doctor, the appointment was scheduled for you for September 05. You will also need to follow-up with neurology. You were started on a new medication, Keppra/levetiracetam 500 mg twice a day to prevent seizures. You will need to discuss with neurology when/if you can stop this medication. You cannot drive for at least 6 months. You should not be bathing or swimming unwitnessed. Finish antibiotic treatment, cefuroxime, for UTI. It is recommended that you consider smoking cessation. Recommend calling [employer] smoking cessation line. Pending Studies at Discharge: No Stand-Alone Forms: My [facility] [employer], Smoking Cessation Medications and DC Order Prescriptions: New levetiracetam [Keppra] 500 mg Tablet 500 mg PO BID Qty: 60 RF: 0 cefuroxime axetil 250 mg tablet 250 mg PO BID Qty: 7 RF: 0 Continued sertraline 100 mg tablet 100 mg PO DAILY RF: 0 quetiapine 100 mg tablet 150 mg PO HS RF: 0 lamotrigine 25 mg tablet 75 mg PO QAM RF: 0 buprenorphine-naloxone 8-2 mg tablet, sublingual 1 tab SUBLINGUAL DAILY RF: 0 Discharge Orders: Discharge Order (Routine); Ordered 08/31/21 Ordered By: Cuate Jin Admission Data Admit Date/Time: 08/29/21 02:44 Attending Provider: Cuate Jin Admit Provider: Philip Holliday Primary Care Provider: Abraham Ibrahim Other Providers: Philip Holliday ; Fabiola Taylor ; Peyman Epps ; Fabiola Edwards ; Raffy Ta ; Rhea Cruz ; Whitney Jose ; Courtney Perdomo ; Isael Harris Other Interventions: [facility] Interdisciplinary Discharge Planning Last Done: 08/30/21 12:01
[2021-08-31] MEDS ORDERED: levETIRAcetam 500 MG TAB PO SCH (21:00)
== END 2021-08-31 13:18 | disposition home or self-care (01) | DRG 918 ==
LOC: ED 22:34 → 2W 08-29 02:44 → 2N 08-29 12:36